=== PATIENT | female | born 1995 | race Caucasian/White ===

== ENCOUNTER 2021-04-02 14:49 | Inpatient (IN) | payer BC, SELFPAY ==
--- NOTE | 2021-04-02 | ECG_ITS ---
Test Reason : QTC PROLONGATION Blood Pressure : / mmHG Vent. Rate : 094 BPM Atrial Rate : 094 BPM P-R Int : 140 ms QRS Dur : 088 ms QT Int : 366 ms P-R-T Axes : 065 075 000 degrees QTc Int : 457 ms Normal sinus rhythm Normal ECG No previous ECGs available Referred By: Almaz Hammer Electronically Signed By:FABIANA HUITRON MD
[2021-04-02 15:14] VITALS: BMI 24.8
[2021-04-02 16:42] VITALS: BP 107/74; PULSE 95; RESP 16; TEMP 36.3; O2SAT 95
--- NOTE | 2021-04-02 18:00 | PC.ADMIT ---
Patient is a 25yr old korean speaking white female who present to [facility] from [facility]. Patient has being struggling with intrusive OCD and frequent SI, endorsing killing herself or self harming. Patient has diagnosis OCD and unspecified Anxiety Disorder. Patient is COVID (-). Patient signed CV. Patient is on 15mins safety checks. Patient reports occasional marijuana use. Patient arrived ton the unit around 1520, present very anxious and tearful. Denies SI/SH/ AH/VH, or pain. Patient reports she feel safe on the unit and will seek for staff support as needed. Patient appears helpless and hopeless stating I fear I'll never get better, I tried so had not to come to the hospital1 . Patient requested to take a shower as a coping skill, which seems to help a little bit and utilized staff support. Patient visible on the unit pacing. Patient tearful but cooperative with admission assessment and paper work.
[2021-04-02] MEDS: clomiPRAMINE HCl 25 MG CAPSULE PO (20:33)
[2021-04-02] MEDS: Mirtazapine 30 MG TABLET PO (20:33)
[2021-04-02] MEDS: hydrOXYzine HCL 25 MG TABLET PO (20:37)
[2021-04-02] MEDS: traZODone HCL 25 MG HALFTAB PO (21:40)
--- NOTE | 2021-04-02 22:11 | P.HPHOSP_ITS ---
History of Present Illness Date of Service: 04/02/21 Chief Complaint: admission H&P 25-year-old female with past medical history of depression is admitted to the [facility] unit for suicidal ideation. We are asked to see her for admission H&P. Patient her reports a history of Crohn's, currently in remission. She denies having any abdominal pain, nausea or vomiting, no diarrhea or constipation. No urinary symptoms. She does not have any acute issues except her depression. Vitals reviewed stable, review systems otherwise negative Review of Systems Review of Systems: Yes all other systems are reviewed and are negative [facility] Medical History (Updated 04/03/21 @ 06:33 by Leisa Shipman MD) Crohn's disease Depression Suicidal ideation Social History Household Members: Family Housing: House Do you presently have visiting nurse or other home services: No Patient Tobacco Use Status: Never used Tobacco Smoked in Last 30 Days: No e-Cigarette/Vaping Use: Never Used Patient Interested in Nicotine Replacement: No Patient Given Instructions on How to Stop Smoking: No Second Hand Smoke Exposure: No Use of substances other than those prescribed or required for medical reasons: No Substance Use Type: Marijuana Substance Use Frequency: Occasionally Last Used Substance: Weeks (ago) Currently Displaying Signs/Symptoms of Drug Intoxication Withdrawal: No Any prior treatment program specific to substance use: Yes ( late 08/2019 ) Have you been hit, kicked, punched, or otherwise hurt by someone within the past year? If so, by whom?: No Do you feel safe in your current relationship?: Yes Is there a partner from a previous relationship who is making you feel unsafe now?: No Are you made to feel afraid or neglected: No Spiritual Healthcare Practices: n/a Caodaism Healthcare Practices: i'm druze Cultural Healthcare Practices: n/a Advance Directives: No Advance Directives Information Provided: No Advance Directives on File: No Do you have thoughts of harming others: None Do you have a plan to hurt others: No Plan Recently lost weight without trying: No Eating poorly because of decreased appetite: No Nutrition Risks: No Nutritional Risk Patient : No : No Poor oral hygiene: No Meds Allergies Allergy/AdvReac Type Severity Reaction Status Date / Time No Known Allergies Allergy Verified 04/02/21 15:23 Active Medications: Current Medications Generic Name Dose Route Start Last Admin Trade Name Freq PRN Reason Stop Dose Admin Acetaminophen 650 mg 04/02/21 19:31 Acetaminophen 325 Mg Tablet PO Q6H PRN Headache/Pain Mild Scale (1-3) Al Hydroxide/Mg Hydroxide 30 ml 04/02/21 19:31 Magnesium Hydrox/Alum Hydrox 30 Ml Oral.Susp PO Q6H PRN Heartburn/Nausea Clomipramine HCl 25 mg 04/02/21 21:00 04/02/21 20:33 Clomipramine Hcl 25 Mg Capsule PO 25 mg BEDTIME CONTR[facility] Administration Escitalopram Oxalate 30 mg 04/03/21 09:00 Escitalopram Oxalate 10 Mg Tablet PO DAILY [facility] Hydroxyzine HCl 25 mg 04/02/21 19:31 04/02/21 20:37 Hydroxyzine Hcl 25 Mg Tablet PO 25 mg BEDTIME PRN Administration Anxiety Hydroxyzine HCl 25 mg 04/02/21 19:37 Hydroxyzine Hcl 25 Mg Tablet PO DAILY PRN Anxiety Ketoconazole 1 appl 04/04/21 21:00 Ketoconazole 2 % Shampoo 120 Ml Btl TOPICAL MoTh@2100 [facility] Protocol Magnesium Hydroxide 30 ml 04/02/21 19:31 Milk Of Magnesia 30 Ml Oral.Susp PO DAILY PRN Constipation Mirtazapine 30 mg 04/02/21 21:00 04/02/21 20:33 Mirtazapine 30 Mg Tablet PO 30 mg BEDTIME [facility] Administration Non-Formulary Medication 0.01 % 04/02/21 21:00 Fluocinolone Oil EAR-BOTH BID [facility] Non-Formulary Medication 1 tab 04/03/21 09:00 Junelle Fe PO DAILY [facility] Trazodone HCl 25 mg 04/02/21 19:31 04/02/21 21:40 Trazodone Hcl 25 Mg Halftab PO 25 mg BEDTIME PRN Administration Insomnia Physical Exam Vital Signs and Narrative: Vital Signs: Last Vital Signs Temp 97.4 F 04/02/21 16:42 Pulse 95 04/02/21 16:42 Resp 16 04/02/21 16:42 BP 107/74 04/02/21 16:42 Pulse Ox 95 04/02/21 16:42 Body Mass Index 24.8 Const: General: cooperative and no acute distress Orientation/consciousness: patient oriented x3 Eyes: General: appearance normal, both eyes and all related structures Pupils: Equal, round and reactive pupils present Resp: Effort & Inspection: normal respiratory effort and able to speak in complete sentences Cardio: Rate: regular rate Rhythm: regular rhythm GI: Palpation (GI): Soft to palpation Auscultation: normal bowel sounds Skin: General skin exam: no rashes or lesions noted Neuro: General: patient oriented x3 Cranial nerves: Yes Equal, round and reactive pupils present Cognition (Neuro): normal cognition Extrem: General: Yes normal to inspection and Yes no pedal edema Assessment and Plan (1) Depression: Status: Inactive (2) Suicidal ideation: Status: Inactive this is a 25-year-old female with past medical history of Crohn's as well as depression who is admitted to [facility] for management suicidal ideation. # Crohn's disease - no flare - monitor for symptoms if occur # depression and suicidal ideation - management by psychiatrist/ U staff DVT prophylaxis: Early ambulation Quality Stroke Does the patient have a stroke diagnosis?: No VTE Prior VTE?: No VTE Risk Level:: Medical - low VTE Device Contraindication: Treatment Not Indicated VTE Drug Contraindication: Treatment Not Indicated
[2021-04-03] MEDS: hydrOXYzine HCL 25 MG TABLET PO (03:38)
[2021-04-03 06:00] VITALS: BP 115/78; PULSE 103; RESP 16; TEMP 36.2; O2SAT 93
[2021-04-03 07:08] LABS: MANUAL DIFF FLAG NO
[2021-04-03 07:13] LABS: Basophils Percent Auto 0.5 % (0-2); Eosinophils Absolute Auto 0.2 X10*3/uL (0.0-0.4); Eosinophils Percent Auto 2.7 % (0-4); Hematocrit 43.4 % (37-47); Hemoglobin 14.5 g/dl (12.0-16.0); Imm Gran Abs Auto 0.02 X10*3/uL (0.00-0.03); Imm Gran Pct Auto 0.2 % (0.0-0.4); Lymphocytes Absolute Auto 4.2 X10*3/uL (1.2-4.9); Lymphocytes Percent Auto 47.7 % (20-40); Mean Corpuscular HGB Conc 33.4 g/dl (31.0-35.0); Mean Corpuscular Hemoglobin 30.5 pg (27.0-33.0); Mean Corpuscular Volume 91.2 fL (80-98); Mean Platelet Volume 11.5 fL (9.4-12.3); Monocytes Absolute Auto 0.7 X10*3/uL (0.1-1.2); Neutrophils Absolute Auto 3.6 X10*3/uL (2.0-8.3); Neutrophils Percent Auto 40.9 % (45-73); Platelet Count 205 X10*3/uL (160-400); Red Blood Count 4.76 X10*6/uL (4.20-5.50); Red Cell Distribution Width 12.5 % (11.0-16.0); White Blood Count 8.8 X10*3/uL (4.8-10.8)
[2021-04-03 07:58] LABS: Alanine Aminotransferase 13 U/L (0-31); Albumin Level 4.1 g/dL (3.5-5.0); Alkaline Phosphatase 60 U/L (39-117); Anion Gap 10 (12-20); Aspartate Amino Transferase 14 U/L (5-31); Bilirubin Direct < 0.2 mg/dL (0.0-0.5); Blood Urea Nitrogen 13 mg/dL (9-16); Calcium 9.3 mg/dL (8.4-10.2); Carbon Dioxide 28 mmol/L (22-29); Chloride 105 mmol/L (96-108); Estimated Glomerular Filt Rate > 60; Glucose Fasting 108 mg/dL (60-99); Potassium 4.2 mmol/L (3.3-5.1); Sodium 139 mmol/L (135-145); Total Protein 7.3 g/dL (6.5-8.0)
[2021-04-03 08:03] LABS: Thyroid Stimulating Hormone 2.95 uIU/mL (0.32-4.0)
--- NOTE | 2021-04-03 08:36 | HE.PHANOTE ---
Contacted overnight nursing staff who spoke with patient about patient's medications. Patient reports they can have someone bring in Junelle and Fluocinolone ear drops. Stephanie Morales, NormanD
[2021-04-03] MEDS: LORazepam 1 MG TABLET PO (09:09)
--- NOTE | 2021-04-03 09:47 | P.HPPS_ITS ---
HPI Chief Complaint: OCD Anxiety Disorder Sources of Information: patient interviewed, chart reviewed and crisis/core team assessment reviewed HPI Subjective Notes: Ross Warning and Conditional Voluntary Narrative: Patient is a 25-year-old female, college graduate with history of OCD and alcohol abuse (in sustained remission) who presents for worsening OCD symptoms of intrusive thoughts about suicide and having now become suicidal. Patient reports that this past January and February her OCD got worse. her obsessive thoughts used to be primarily focused on sleep and switched to obsessively intrusive thoughts about whether she still liked her boyfriend, still loved her boyfriend, was attracted to him. . . Asking herself this more than once a minute and all day long. She said she barely made it through work which is now finished for the summer. Patient reports she started having some SI and her outpatient provider started her on clomipramine however over the this subsequent weaker to her obsessive intrusive thoughts started thinking about suicide. Patient had insight, understood this was OCD directed and reports they were just intrusive thoughts and that she had no desire or intent to harm herself; however she could not stop thinking about how she would do it, if she should do it which became overwhelming and started to bleed to hopeless d epressive feelings that she would ever get over her OCD. She reports she mentioned the became suicidal and was for the 1st time in her life entertaining the idea of hanging herself to . The patient has very good support with her boyfriend and parents and she made no attempt. When at her gynecology appointment she expressed SI, crisis was called and patient was admitted. Patient denies trauma history; she denies current desire to hurt herself and wants treatment. Patient denies any drug or alcohol abuse and has been sober from alcohol since August 2019. patient denies any AVH. patient denies compulsive behaviors. past psychiatric history/ OCD progression: patient was treated for anxiety as a teenager and was on Luvox In college she stop Luvox but with recurrent anxiety was started on Lexapro and eventually titrated to 30 mg. patient was also using alcohol to mitigate symptoms, though got sober in 2018. 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 OCD symptoms worsened and she was [facility]. There she was continued on Lexapro and started on mirtazapine. At this time, her OCD symptoms were about intrusive thoughts regarding sleep. After discharge she reports doing pretty well over the next spring and Summer and was involved with both CBT therapy and DBT. in the fall of 2019 patient's anxiety increased and her Lexapro was increased to 40 mg; right around that same time patient got COVID and ended up very isolated from people, which increased anxiety and resulted in panic attacks. She had some concern that the increased anxiety was due to the Lexapro increase so it was lowered back to 30 mg however anxiety did continue. After she recovered from COVID, she was able to work again and being around people, being less isolated her anxiety decreased. She reports from October 2020 until January 2021 she was overall doing pretty good and says she was functional . . . Working, doing activities, getting together with friends. Towards the end of January and starting in February is when her OCD switch to obsessive thoughts about her relationship. See above for continued recent history. 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 Boyfriend who is supportive since June 2020 About to move into a new house with her boyfriend Substance History: history of alcohol abuse, sober since 2018 Trauma History: denies Diagnostics Vital Signs (24Hr): Vital Signs - 24 hr 04/02/21 16:42 04/03/21 06:00 Temperature 97.4 F 97.1 F Pulse Rate 95 103 H Respiratory Rate 16 16 Blood Pressure 107/74 115/78 Pulse Oximetry 95 93 Body Mass Index 24.8 Labs Results: 04/03/21 07:02 04/03/21 07:02 Labs: Laboratory Results - last 48 hr 04/03/21 04/03/21 07:02 07:02 WBC 8.8 RBC 4.76 Hgb 14.5 Hct 43.4 MCV 91.2 MCH 30.5 MCHC 33.4 RDW 12.5 Plt Count 205 MPV 11.5 Immature Gran % (Auto) 0.2 Neut % (Auto) 40.9 L Lymph % (Auto) 47.7 H [place] % (Auto) 8.0 Eos % (Auto) 2.7 Baso % (Auto) 0.5 Lymph # (Auto) 4.2 [place] # (Auto) 0.7 Eos # (Auto) 0.2 Baso # (Auto) 0.0 Abs Immat Gran (auto) 0.02 Absolute Neuts (auto) 3.6 Absolute Nucleated RBC 0.000 Nucleated RBC % (auto) 0.0 Sodium 139 Potassium 4.2 Chloride 105 Carbon Dioxide 28 Anion Gap 10 L BUN 13 Creatinine 0.91 Estim Creat Clear Calc 85.0 Estimated GFR > 60 Fasting Glucose 108 H Calcium 9.3 Total Bilirubin < 0.2 Direct Bilirubin < 0.2 AST 14 ALT 13 Alkaline Phosphatase 60 Total Protein 7.3 Albumin 4.1 TSH 2.95 Free T4 1.00 Meds/Allergies Meds Home Medications Acetaminophen (Acetaminophen 325 Mg Tablet) 650 mg PO Q6H PRN PRN Reason: Headache/Pain Mild Scale (1-3) Al Hydroxide/Mg Hydroxide (Magnesium Hydrox/Alum Hydrox 30 Ml Oral.Susp) 30 ml PO Q6H PRN PRN Reason: Heartburn/Nausea Clomipramine HCl (Clomipramine Hcl 25 Mg Capsule) 50 mg PO BEDTIME [facility] Escitalopram Oxalate (Escitalopram Oxalate 10 Mg Tablet) 30 mg PO DAILY [facility] Last Admin: 04/03/21 10:57 Dose: 30 mg Documented by: Gabapentin (Gabapentin 300 Mg Capsule) 300 mg PO TID PRN PRN Reason: anxiety Ketoconazole (Ketoconazole 2 % Shampoo 120 Ml Btl) 1 appl TOPICAL MoTh@2100 [facility]; Protocol Magnesium Hydroxide (Milk Of Magnesia 30 Ml Oral.Susp) 30 ml PO DAILY PRN PRN Reason: Constipation Mirtazapine (Mirtazapine 7.5 Mg Tablet) 7.5 mg PO BEDTIME [facility] Non-Formulary Medication (Fluocinolone Oil) 0.01 % EAR-BOTH BID [facility] Non-Formulary Medication () 1 tab PO DAILY [facility] Trazodone HCl (Trazodone Hcl 50 Mg Tablet) 50 mg PO BEDTIME [facility] Trazodone HCl (Trazodone Hcl 50 Mg Tablet) 50 mg PO BEDTIME PRN PRN Reason: continued insomnia Allergies Allergies Allergy/AdvReac Type Severity Reaction Status Date / Time No Known Allergies Allergy Verified 04/02/21 15:23 Mental Status Exam Mental Status Exam Narrative: Pt is alert and oriented; behavior is cooperative, friendly and calm; patient intermittently tearful; dressed in casual attire with adequate hygiene; mood is described as anxious and affect congruent; eye contact appropriate; Speech is normal rate, volume and prosody and not pressured; no psychomotor agitation/retardation present; thought process is organized, linear, logical and goal directed. Thought content is on treatment and otherwise pertinent to relevant topics and without any delusional content, paranoid ideations or grandiosity; denies any SI/HI. There is no evidence of perceptual disturbance. Patients insight and judgment appear intact. Assessment & Plan Assessment & Plan (1) OCD (obsessive compulsive disorder): Status: Chronic Qualifiers: Qualified Code(s): F42.9 - Obsessive-compulsive disorder, unspecified Code(s): F42.9 - Obsessive-compulsive disorder, unspecified Assessment and Plan: IMPRESSION: Patient is a 25-year-old female, college graduate with history of OCD and alcohol abuse (in sustained remission) who presents for worsening OCD symptoms of intrusive thoughts about suicide and having now become suicidal. Patient has suicidal thoughts remain intrusive however she denies any desire to harm herself and wants treatment Patient has OCD is chronic and goes through periods of exacerbation; she seems to have done best when also engaged in CBT therapy which she would like to get back into. Lexapro seems to have partially worked to varying degrees; clomipramine was just started. Is unlikely that Lexapro dose, when raised to 40 mg caused increased anxiety is this coincided with patient being isolated due to COVID; also SI started before clomipramine was added as a medication; that said she is on 3 agents that increase serotonin and could have a touch of serotonin syndrome. thoroughly discussed treatment options including increasing the doses of meds she is on or trying new meds. Patient would like to see if clomipramine could be effective at higher doses; she agrees to lower mirtazapine to 7.5 mg while titrating clomipramine; will leave Lexapro as is. Plan: Patient on CV Q 15 minutes checks Will increase clomipramine to 50 mg; it was started about 2 weeks ago Will lower mirtazapine to 7.5 mg; not sure if affective and want to lower risk of serotonin syndrome Will keep Lexapro at 30 mg for now Will add gabapentin 300 mg t.i.d. p.r.n. for anxiety as there is a desire to find alternative to benzos given patient's ETOH abuse history DC hydroxyzine which patient says is not effective Increase trazodone to 50 mg with a repeat for insomnia Labs at [place]: urine test negative; UDS negative Reason for continued inpatient stay Substantial Risk for: rapid decompensation
[2021-04-03] MEDS: Escitalopram Oxalate 10 MG TABLET 30 MG PO (10:57)
[2021-04-03 14:46] LABS: Urine Pregnancy NEGATIVE (NEGATIVE)
[2021-04-03 14:47] LABS: UPreg QC Valid YES
[2021-04-03 17:42] LABS: Bilirubin Total 0.3 mg/dL (0.0-1.0)
[2021-04-03 18:00] VITALS: BP 126/62; PULSE 106
[2021-04-03] MEDS: Mirtazapine 7.5 MG TABLET PO (20:55)
[2021-04-03] MEDS: clomiPRAMINE HCl 25 MG CAPSULE 50 MG PO (20:56)
[2021-04-03] MEDS: traZODone HCL 50 MG TABLET PO (21:32)
[2021-04-03] MEDS: Gabapentin 300 MG CAPSULE PO (21:33)
[2021-04-04] MEDS: Escitalopram Oxalate 10 MG TABLET 30 MG PO (08:01)
--- NOTE | 2021-04-04 09:44 | HO.PSYCHPN ---
Subjective Subjective Date of Service: 04/04/21 Reason For Visit: OCD Anxiety Disorder Interim History: met with patient and her parents pt reports SI has thus far resolved; currently her obsessive thinking is focused on obsessive thinking and will she ever get relief. Pt did get a good night sleep last night. Pt denies any side-effects from increased Clomipramine and agrees to further titration. [employer] provided pharmaco-education to parents and patient who agree with plan to further titrate Clomipramine. Medication Compliance: Yes Side effects from medications: No Attending Groups: Yes Mental Status Exam Mental Status Exam Narrative: Pt is alert and oriented; behavior is cooperative, friendly and calm; dressed in casual attire with adequate hygiene; mood is described as a little hopeless and affect congruent; eye contact appropriate; Speech is normal rate, volume and prosody and not pressured; no psychomotor agitation/retardation present; thought process is organized, linear, logical and goal directed. Thought content is on treatment and otherwise pertinent to relevant topics and without any delusional content, paranoid ideations or grandiosity; denies any SI/HI. There is no evidence of perceptual disturbance. Patients insight and judgment appear intact. Diagnostics Vital Signs (24Hr): Vital Signs - 24 hr 04/03/21 18:00 Pulse Rate 106 H Blood Pressure 126/62 Body Mass Index 24.8 Labs Results: 04/03/21 07:02 04/03/21 07:02 Labs: Laboratory Results - last 48 hr 04/03/21 04/03/21 04/03/21 07:02 07:02 14:27 WBC 8.8 RBC 4.76 Hgb 14.5 Hct 43.4 MCV 91.2 MCH 30.5 MCHC 33.4 RDW 12.5 Plt Count 205 MPV 11.5 Immature Gran % (Auto) 0.2 Neut % (Auto) 40.9 L Lymph % (Auto) 47.7 H [place] % (Auto) 8.0 Eos % (Auto) 2.7 Baso % (Auto) 0.5 Lymph # (Auto) 4.2 [place] # (Auto) 0.7 Eos # (Auto) 0.2 Baso # (Auto) 0.0 Abs Immat Gran (auto) 0.02 Absolute Neuts (auto) 3.6 Absolute Nucleated RBC 0.000 Nucleated RBC % (auto) 0.0 Sodium 139 Potassium 4.2 Chloride 105 Carbon Dioxide 28 Anion Gap 10 L BUN 13 Creatinine 0.91 Estim Creat Clear Calc 85.0 Estimated GFR > 60 Fasting Glucose 108 H Calcium 9.3 Total Bilirubin 0.3 Direct Bilirubin < 0.2 AST 14 ALT 13 Alkaline Phosphatase 60 Total Protein 7.3 Albumin 4.1 TSH 2.95 Free T4 1.00 Urine Test NEGATIVE Medications Medications Current Medications Generic Name Dose Route Start Last Admin Trade Name Freq PRN Reason Stop Dose Admin Acetaminophen 650 mg 04/02/21 19:31 Acetaminophen 325 Mg Tablet PO Q6H PRN Headache/Pain Mild Scale (1-3) Al Hydroxide/Mg Hydroxide 30 ml 04/02/21 19:31 Magnesium Hydrox/Alum Hydrox 30 Ml Oral.Susp PO Q6H PRN Heartburn/Nausea Clomipramine HCl 50 mg 04/03/21 21:00 04/03/21 20:56 Clomipramine Hcl 25 Mg Capsule PO 50 mg BEDTIME [facility] Administration Escitalopram Oxalate 30 mg 04/03/21 09:00 04/04/21 08:01 Escitalopram Oxalate 10 Mg Tablet PO 30 mg DAILY [facility] Administration Gabapentin 300 mg 04/03/21 15:18 04/03/21 21:33 Gabapentin 300 Mg Capsule PO 300 mg TID PRN Administration anxiety Ketoconazole 1 appl 04/04/21 21:00 Ketoconazole 2 % Shampoo 120 Ml Btl TOPICAL MoTh@2100 [facility] Protocol Magnesium Hydroxide 30 ml 04/02/21 19:31 Milk Of Magnesia 30 Ml Oral.Susp PO DAILY PRN Constipation Mirtazapine 7.5 mg 04/03/21 21:00 04/03/21 20:55 Mirtazapine 7.5 Mg Tablet PO 7.5 mg BEDTIME [facility] Administration Non-Formulary Medication 0.01 % 04/02/21 21:00 Fluocinolone Oil EAR-BOTH BID [facility] Non-Formulary Medication 1 tab 04/03/21 09:00 Junelle Fe PO DAILY [facility] Trazodone HCl 50 mg 04/03/21 21:00 04/03/21 21:32 Trazodone Hcl 50 Mg Tablet PO 50 mg BEDTIME [facility] Administration Trazodone HCl 50 mg 04/03/21 15:21 Trazodone Hcl 50 Mg Tablet PO BEDTIME PRN continued insomnia Allergies Allergies Allergy/AdvReac Type Severity Reaction Status Date / Time No Known Allergies Allergy Verified 04/02/21 15:23 Assessment & Plan Assessment & Plan (1) OCD (obsessive compulsive disorder): Qualifiers: Qualified Code(s): F42.9 - Obsessive-compulsive disorder, unspecified Status: Chronic Code(s): F42.9 - Obsessive-compulsive disorder, unspecified Assessment and Plan: IMPRESSION: Patient is a 25-year-old female, college graduate with history of OCD and alcohol abuse (in sustained remission) who presents for worsening OCD symptoms of intrusive thoughts about suicide and having now become suicidal. Patient has suicidal thoughts remain intrusive however she denies any desire to harm herself and wants treatment Patient has OCD is chronic and goes through periods of exacerbation; she seems to have done best when also engaged in CBT therapy which she would like to get back into. Lexapro seems to have partially worked to varying degrees; clomipramine was just started. Is unlikely that Lexapro dose, when raised to 40 mg caused increased anxiety is this coincided with patient being isolated due to COVID; also SI started before clomipramine was added as a medication; that said she is on 3 agents that increase serotonin and could have a touch of serotonin syndrome. thoroughly discussed treatment options including increasing the doses of meds she is on or trying new meds. Patient would like to see if clomipramine could be effective at higher doses; she agrees to lower mirtazapine to 7.5 mg while titrating clomipramine; will leave Lexapro as is. Plan: Patient on CV Q 15 minutes checks Increase clomipramine to 75 mg; (Clomipramine was started about 2 weeks ago) Lowered mirtazapine to 7.5 mg and will leave here for now; may soon DC; not sure if affective and want to lower risk of serotonin syndrome Will keep Lexapro at 30 mg for now Will add gabapentin 300 mg t.i.d. p.r.n. for anxiety as there is a desire to find alternative to benzos given patient's ETOH abuse history DC hydroxyzine which patient says is not effective Increase trazodone to 50 mg with a repeat for insomnia Labs at [place]: urine test negative; UDS negative Greater than 50% of the session was spent on counseling and/or coordination of care Reason for contiued inpatient stay Substantial Risk for: rapid decompensation
[2021-04-04 11:15] VITALS: BMI 24.6
[2021-04-04 19:51] VITALS: BP 125/74; PULSE 99; RESP 16
[2021-04-04] MEDS: Mirtazapine 7.5 MG TABLET PO (21:02)
[2021-04-04] MEDS: clomiPRAMINE HCl 25 MG CAPSULE 75 MG PO (21:02)
[2021-04-04] MEDS: traZODone HCL 50 MG TABLET PO (22:29)
[2021-04-05 08:29] VITALS: BP 109/68; PULSE 68; RESP 18; TEMP 36.2; O2SAT 98
[2021-04-05] MEDS: Escitalopram Oxalate 10 MG TABLET 30 MG PO (08:51)
--- NOTE | 2021-04-05 12:01 | P.PNPSI_ITS ---
Subjective Subjective Date of Service: 04/05/21 Reason For Visit: OCD Anxiety Disorder Interim History: patient tearful today, saying that although she had a good day yesterday and slept well last night, she woke up very anxious and worried and perseverating on the fact that she may never get better. She reports some momentary thoughts of SI and she is worried that obsessive thoughts about suicide will return. She denies any intent, plan or desire toward self harm. She denies any medication side effects and agrees to continue to titrate clomipramine to 100 mg. she continues to use her coping skills to deal with upsetting thoughts and she and technical proposal writer did a short CBT type exercise which patient found helpful. Later patient's parents came and met with technical proposal writer and continue to discuss medication management. All agreed that it was corral for patient to remain on unit a little longer to help resolve symptoms. Medication Compliance: Yes Side effects from medications: No Attending Groups: Yes Mental Status Exam Mental Status Exam Narrative: Pt is alert and oriented; behavior is cooperative, friendly, tearful at times; dressed in casual attire with adequate hygiene; mood is described as anxious and affect congruent; eye contact appropriate; Speech is normal rate, volume and prosody and not pressured; no psychomotor agitation/retardation present; thought process is organized, linear, logical and goal directed. Thought content is on treatment and otherwise pertinent to relevant topics and without any delusional content, paranoid ideations or grandiosity; denies any active SI/HI. There is no evidence of perceptual disturbance. Patients insight and judgment appear intact. Diagnostics Vital Signs (24Hr): Vital Signs - 24 hr 04/04/21 19:51 04/05/21 08:29 Temperature 97.1 F Pulse Rate 99 68 Respiratory Rate 16 18 Blood Pressure 125/74 109/68 Pulse Oximetry 98 Body Mass Index 24.6 Labs Results: 04/03/21 07:02 04/03/21 07:02 Labs: Laboratory Results - last 48 hr 04/03/21 04/03/21 07:02 14:27 Total Bilirubin 0.3 Urine Test NEGATIVE Medications Medications Current Medications Generic Name Dose Route Start Last Admin Trade Name Freq PRN Reason Stop Dose Admin Acetaminophen 650 mg 04/02/21 19:31 Acetaminophen 325 Mg Tablet PO Q6H PRN Headache/Pain Mild Scale (1-3) Al Hydroxide/Mg Hydroxide 30 ml 04/02/21 19:31 Magnesium Hydrox/Alum Hydrox 30 Ml Oral.Susp PO Q6H PRN Heartburn/Nausea Clomipramine HCl 75 mg 04/04/21 21:00 04/04/21 21:02 Clomipramine Hcl 25 Mg Capsule PO 75 mg BEDTIME CONTRERAS Administration Escitalopram Oxalate 30 mg 04/03/21 09:00 04/05/21 08:51 Escitalopram Oxalate 10 Mg Tablet PO 30 mg DAILY CONTRERAS Administration Gabapentin 300 mg 04/03/21 15:18 04/03/21 21:33 Gabapentin 300 Mg Capsule PO 300 mg TID PRN Administration anxiety Ketoconazole 1 appl 04/04/21 21:00 04/04/21 21:02 Ketoconazole 2 % Shampoo 120 Ml Btl TOPICAL Not Given MoTh@2100 [facility] Protocol Magnesium Hydroxide 30 ml 04/02/21 19:31 Milk Of Magnesia 30 Ml Oral.Susp PO DAILY PRN Constipation Mirtazapine 7.5 mg 04/03/21 21:00 04/04/21 21:02 Mirtazapine 7.5 Mg Tablet PO 7.5 mg BEDTIME CONTRERAS Administration Non-Formulary Medication 0.01 % 04/02/21 21:00 Fluocinolone Oil EAR-BOTH BID CONTRERAS Non-Formulary Medication 1 tab 04/03/21 09:00 Junelle Fe PO DAILY CONTRERAS Trazodone HCl 50 mg 04/03/21 21:00 04/04/21 22:29 Trazodone Hcl 50 Mg Tablet PO 50 mg BEDTIME CONTRERAS Administration Trazodone HCl 50 mg 04/03/21 15:21 Trazodone Hcl 50 Mg Tablet PO BEDTIME PRN continued insomnia Allergies Allergies Allergy/AdvReac Type Severity Reaction Status Date / Time No Known Allergies Allergy Verified 04/02/21 15:23 Assessment & Plan Assessment & Plan (1) OCD (obsessive compulsive disorder): Qualifiers: Qualified Code(s): F42.9 - Obsessive-compulsive disorder, unspecified Status: Chronic Code(s): F42.9 - Obsessive-compulsive disorder, unspecified Assessment and Plan: IMPRESSION: Patient is a 25-year-old female, college graduate with history of OCD and alcohol abuse (in sustained remission) who presents for worsening OCD symptoms of intrusive thoughts about suicide and having now become suicidal. Patient has suicidal thoughts remain intrusive however she denies any desire to harm herself and wants treatment Patient has OCD is chronic and goes through periods of exacerbation; she seems to have done best when also engaged in CBT therapy which she would like to get back into. Lexapro seems to have partially worked to varying degrees; clomipramine was just started. Is unlikely that Lexapro dose, when raised to 40 mg caused increased anxiety is this coincided with patient being isolated due to COVID; also SI started before clomipramine was added as a medication; that said she is on 3 agents that increase serotonin and could have a touch of serotonin syndrome. thoroughly discussed treatment options including increasing the doses of meds she is on or trying new meds. Patient would like to see if clomipramine could be effective at higher doses; she agrees to lower mirtazapine to 7.5 mg while titrating clomipramine; will leave Lexapro as is. Patient remains depressed and anxious, intermittently tearful and plagued with intrusive obsessive thoughts. Patient needs to remain on unit for continued medication management as she is being titrated on clomipramine. Plan: Patient on CV Q 15 minutes checks EKG ordered for 04/09 to follow Qtc Titrating clomipramine to 100mg (Clomipramine was started about 2 weeks ago) Lowered mirtazapine to 7.5 mg; will dc (not sure effective) will keep Lexapro at 30 mg for now continue gabapentin 300 mg t.i.d. p.r.n. for anxiety as there is a desire to find alternative to benzos given patient's ETOH abuse history DC hydroxyzine which patient says is not effective Increase trazodone to 50 mg with a repeat for insomnia Labs at [place]: urine test negative; UDS negative Greater than 50% of the session was spent on counseling and/or coordination of care Reason for contiued inpatient stay Substantial Risk for: rapid decompensation
[2021-04-05 20:29] VITALS: BP 125/91; PULSE 114
[2021-04-05] MEDS: Mirtazapine 7.5 MG TABLET PO (21:14)
[2021-04-05] MEDS: clomiPRAMINE HCl 25 MG CAPSULE 75 MG PO (21:14)
[2021-04-05] MEDS: traZODone HCL 50 MG TABLET PO (22:19)
--- NOTE | 2021-04-06 | ECG_ITS ---
Test Reason : irregular heart beat/tachycardia Blood Pressure : / mmHG Vent. Rate : 099 BPM Atrial Rate : 099 BPM P-R Int : 134 ms QRS Dur : 084 ms QT Int : 358 ms P-R-T Axes : 055 072 -09 degrees QTc Int : 459 ms Normal sinus rhythm Abnormal QRS-T angle, consider primary T wave abnormality Abnormal ECG No previous ECGs available Referred By: Almaz Hammer Electronically Signed By:FABIANA HUITRON MD
[2021-04-06] MEDS: traZODone HCL 50 MG TABLET PO (00:36)
[2021-04-06 06:46] VITALS: BP 104/55; PULSE 106; RESP 18; O2SAT 98
[2021-04-06] MEDS: Gabapentin 300 MG CAPSULE PO ×2 (08:03→21:50)
[2021-04-06] MEDS: Escitalopram Oxalate 10 MG TABLET 30 MG PO (08:03)
[2021-04-06 08:31] VITALS: BP 123/69; PULSE 78; RESP 20; O2SAT 100
[2021-04-06 11:05] LABS: MANUAL DIFF FLAG NO
[2021-04-06 11:25] LABS: Basophils Percent Auto 0.3 % (0-2); Eosinophils Percent Auto 0.5 % (0-4); Hematocrit 44.2 % (37-47); Hemoglobin 15.1 g/dl (12.0-16.0); Imm Gran Abs Auto 0.02 X10*3/uL (0.00-0.03); Imm Gran Pct Auto 0.3 % (0.0-0.4); Lymphocytes Absolute Auto 1.6 X10*3/uL (1.2-4.9); Lymphocytes Percent Auto 24.8 % (20-40); Mean Corpuscular HGB Conc 34.2 g/dl (31.0-35.0); Mean Corpuscular Hemoglobin 30.4 pg (27.0-33.0); Mean Corpuscular Volume 89.1 fL (80-98); Mean Platelet Volume 11.2 fL (9.4-12.3); Monocytes Absolute Auto 0.4 X10*3/uL (0.1-1.2); Neutrophils Absolute Auto 4.5 X10*3/uL (2.0-8.3); Neutrophils Percent Auto 68.1 % (45-73); Platelet Count 191 X10*3/uL (160-400); Red Blood Count 4.96 X10*6/uL (4.20-5.50); Red Cell Distribution Width 12.5 % (11.0-16.0); White Blood Count 6.6 X10*3/uL (4.8-10.8)
[2021-04-06 12:03] LABS: Alanine Aminotransferase 13 U/L (0-31); Albumin Level 4.2 g/dL (3.5-5.0); Alkaline Phosphatase 59 U/L (39-117); Anion Gap 16 (12-20); Aspartate Amino Transferase 16 U/L (5-31); Bilirubin Total 0.4 mg/dL (0.0-1.0); Blood Urea Nitrogen 11 mg/dL (9-16); Calcium 9.6 mg/dL (8.4-10.2); Carbon Dioxide 23 mmol/L (22-29); Chloride 103 mmol/L (96-108); Creatinine Clr Calc Pharmacy 71.6; Estimated Glomerular Filt Rate > 60; Glucose Random 152 mg/dL (60-115); Potassium 4.6 mmol/L (3.3-5.1); Sodium 137 mmol/L (135-145); Total Protein 7.9 g/dL (6.5-8.0)
--- NOTE | 2021-04-06 12:43 | HO.PSYCHPN ---
Subjective Subjective Date of Service: 04/06/21 Reason For Visit: OCD Anxiety Disorder Interim History: Pt very tearful; anxious; sedated; making suicidal statement; stating her body feels terrible; stating she does not understand what is going on with her. fearful she wont ever recover; says her body feels terrible but unable to describe; presents with muscle weakness, difficulty keeping eyes open, afraid to be alone. sobbing at times. Needing much reassurance. Initially disheveled but able to take shower and attend to hygiene. patient's parents came fro visit which pt found calming. Review of Systems Review of Systems Yes all other systems are reviewed and are negative Constitutional: Reports malaise, Reports poor appetite and Reports weakness Comments: reports rapid heart beat EKG abnormal- see below denies chest pain denies nausea Comments: no SOB Comments: denies Comments: denies sx Comments: no twitching, no rigidity, no tremor; presents with weakness, slow movement, closed eyelids, laying head on table Reports weakness Comments: no falls, denies numbness or tingling Mental Status Exam Mental Status Exam Narrative: Pt is presenting sedated, eye lids drooping, head on table; oriented to person, place, time, behavior is cooperative, friendly, very tearful at times; sobbing at times. dressed in casual attire and initially disheveled but later in am took shower and presented with more adequate hygiene; mood is described highly distressed, distraught, hopelss, and anxious. affect congruent; eye closed frequently; Speech is normal rate, volume and prosody and not pressured; psychomotor agitation present with sedation present; thought process is disorganized, ruminating abour never getting better and feeling like she needs to pull herself together Thought content is on treatment and otherwise pertinent to relevant topics and without any delusional content, paranoid ideations or grandiosity; expressing passive SI with strong hopelessness; no HI. There is no evidence of perceptual disturbance. Patients insight and judgment appear fair- poor. Diagnostics Vital Signs (24Hr): Vital Signs - 24 hr 04/05/21 20:29 04/06/21 06:46 04/06/21 08:31 Pulse Rate 114 H 106 H 78 Respiratory Rate 18 20 Blood Pressure 125/91 H 104/55 L 123/69 Pulse Oximetry 98 100 Body Mass Index 24.6 Labs Results: 04/06/21 10:54 04/06/21 10:54 Labs: Laboratory Results - last 48 hr 04/06/21 04/06/21 10:54 10:54 WBC 6.6 RBC 4.96 Hgb 15.1 Hct 44.2 MCV 89.1 MCH 30.4 MCHC 34.2 RDW 12.5 Plt Count 191 MPV 11.2 Immature Gran % (Auto) 0.3 Neut % (Auto) 68.1 Lymph % (Auto) 24.8 [place] % (Auto) 6.0 Eos % (Auto) 0.5 Baso % (Auto) 0.3 Lymph # (Auto) 1.6 [place] # (Auto) 0.4 Eos # (Auto) 0.0 Baso # (Auto) 0.0 Abs Immat Gran (auto) 0.02 Absolute Neuts (auto) 4.5 Absolute Nucleated RBC 0.000 Nucleated RBC % (auto) 0.0 Sodium 137 Potassium 4.6 Chloride 103 Carbon Dioxide 23 Anion Gap 16 BUN 11 Creatinine 1.08 Estim Creat Clear Calc 71.6 Estimated GFR > 60 Random Glucose 152 H Calcium 9.6 Total Bilirubin 0.4 AST 16 ALT 13 Alkaline Phosphatase 59 Total Protein 7.9 Albumin 4.2 Medications Medications Current Medications Generic Name Dose Route Start Last Admin Trade Name Freq PRN Reason Stop Dose Admin Acetaminophen 650 mg 04/02/21 19:31 Acetaminophen 325 Mg Tablet PO Q6H PRN Headache/Pain Mild Scale (1-3) Al Hydroxide/Mg Hydroxide 30 ml 04/02/21 19:31 Magnesium Hydrox/Alum Hydrox 30 Ml Oral.Susp PO Q6H PRN Heartburn/Nausea Clomipramine HCl 50 mg 04/06/21 21:00 Clomipramine Hcl 25 Mg Capsule PO BEDTIME PENDING SALE TO [facility] Escitalopram Oxalate 10 mg 04/07/21 09:00 Escitalopram Oxalate 10 Mg Tablet PO DAILY PENDING SALE TO [facility] Gabapentin 300 mg 04/03/21 15:18 04/06/21 08:03 Gabapentin 300 Mg Capsule PO 300 mg TID PRN Administration anxiety Ketoconazole 1 appl 04/04/21 21:00 04/04/21 21:02 Ketoconazole 2 % Shampoo 120 Ml Btl TOPICAL Not Given MoTh@2100 [facility] Protocol Magnesium Hydroxide 30 ml 04/02/21 19:31 Milk Of Magnesia 30 Ml Oral.Susp PO DAILY PRN Constipation Mirtazapine 3.75 mg 04/06/21 21:00 Mirtazapine 7.5 Mg Tablet PO 04/06/21 23:59 BEDTIME CONTRERAS Non-Formulary Medication 0.01 % 04/02/21 21:00 Fluocinolone Oil EAR-BOTH BID CONTRERAS Non-Formulary Medication 1 tab 04/03/21 09:00 Junelle Fe PO DAILY CONTRERAS Trazodone HCl 25 mg 04/06/21 21:00 Trazodone Hcl 25 Mg Halftab PO BEDTIME CONTRERAS Trazodone HCl 25 mg 04/06/21 10:06 Trazodone Hcl 25 Mg Halftab PO BEDTIME PRN continued insomnia Allergies Allergies Allergy/AdvReac Type Severity Reaction Status Date / Time No Known Allergies Allergy Verified 04/02/21 15:23 Assessment & Plan Assessment & Plan (1) OCD (obsessive compulsive disorder): Qualifiers: Qualified Code(s): F42.9 - Obsessive-compulsive disorder, unspecified Status: Chronic Code(s): F42.9 - Obsessive-compulsive disorder, unspecified Assessment and Plan: IMPRESSION: Patient is a 25-year-old female, college graduate with history of OCD and alcohol abuse (in sustained remission) who presents for worsening OCD symptoms of intrusive thoughts about suicide and having now become suicidal. Patient has suicidal thoughts remain intrusive however she denies any desire to harm herself and wants treatment Patient has OCD is chronic and goes through periods of exacerbation; she seems to have done best when also engaged in CBT therapy which she would like to get back into. Lexapro seems to have partially worked to varying degrees; clomipramine was just started. Is unlikely that Lexapro dose, when raised to 40 mg caused increased anxiety is this coincided with patient being isolated due to COVID; also SI started before clomipramine was added as a medication; that said she is on 3 agents that increase serotonin and could have a touch of serotonin syndrome. thoroughly discussed treatment options including increasing the doses of meds she is on or trying new meds. Patient would like to see if clomipramine could be effective at higher doses; she agrees to lower mirtazapine to 7.5 mg while titrating clomipramine; will leave Lexapro as is. 04/06/21 Patient presenting much more distressed this am with agitation and sedation. Patient remains depressed and anxious, intermittently tearful, sobbing and plagued with intrusive obsessive thoughts and hopelessness. Unclear if pt having reaction to clomipramine, gabapentin , or medication combination. R/O serotonin syndrome vs adverse reaction to medications. Chem profile and CBC ordered. EKG ordered. Changed to 5 min checks due to presentation and increased verbalization of SI, increased distress Plan: Patient on CV Q 5 minutes checks EKG ordered for today to r/o reaction to meds CMP and CBC REDUCE clomipramine to 50mg and recheck EKG 04/06 (Clomipramine was started about 2 weeks ago) REDUCE mirtazapine to 3.25 mg and plan to dc (not sure effective) REDUCE will keep Lexapro at 10 mg due to risk of serotonin syndrome continue gabapentin 300 mg t.i.d. p.r.n. for anxiety as there is a desire to find alternative to benzos given patient's ETOH abuse history - may need to reduce dosage if too sedating REDUCE trazodone to 25 mg with a repeat for insomnia Labs at [facility]: urine test negative; UDS negative Greater than 50% of the session was spent on counseling and/or coordination of care Reason for contiued inpatient stay Substantial Risk for: harm to self, inability to function and med/psych decompensation
[2021-04-06 18:10] VITALS: BP 117/76; PULSE 105; RESP 18; O2SAT 100
[2021-04-06] MEDS: clomiPRAMINE HCl 25 MG CAPSULE 50 MG PO (20:25)
[2021-04-06] MEDS: traZODone HCL 25 MG HALFTAB PO ×2 (21:51→21:52)
[2021-04-06] MEDS: Mirtazapine 7.5 MG TABLET 3.75 MG PO (21:51)
--- NOTE | 2021-04-07 | ECG_ITS ---
Test Reason : abnormal EKG with QRS-T angle Blood Pressure : / mmHG Vent. Rate : 074 BPM Atrial Rate : 074 BPM P-R Int : 132 ms QRS Dur : 082 ms QT Int : 388 ms P-R-T Axes : 059 077 012 degrees QTc Int : 430 ms Normal sinus rhythm Normal ECG When compared with ECG of 03-APR-2021 10:08, No significant change was found Referred By: Almaz Hammer Electronically Signed By:FABIANA HUITRON MD
[2021-04-07 06:00] VITALS: BP 133/66; PULSE 119; RESP 16; TEMP 36.7; O2SAT 97
[2021-04-07] MEDS: Escitalopram Oxalate 10 MG TABLET PO (08:04)
--- NOTE | 2021-04-07 11:31 | P.PNPSI_ITS ---
Subjective Subjective Date of Service: 04/07/21 Reason For Visit: OCD Anxiety Disorder Interim History: 04/07/21 pt much clearer logical, coherent. no sedation, no confusion. no muscle weakness, alert and eyes open, slightly pressured speech and perseverating on meds for OCD. much less distraught. Repeat EKG normal. worried about lower lexapro but accepted explanation of possible serotonin syndrome. she will like to retrial increase clomipramne. she reports she slept well last night. On 04/06/21 Pt very tearful; anxious; sedated; making suicidal statement; stating her body feels terrible; stating she does not understand what is going on with her. fearful she wont ever recover; says her body feels terrible but unable to describe; presents with muscle weakness, difficulty keeping eyes open, afraid to be alone. sobbing at times. Needing much reassurance. Initially disheveled but able to take shower and attend to hygiene. patient's parents came fro visit which pt found calming. Review of Systems Review of Systems no muscle weakness today, no lethargy, alert, eating well Constitutional: Reports increased appetite Mental Status Exam Mental Status Exam Narrative: Pt is presenting alert, good eye contqact, eyes open, able to focus and track;sitting up straight , no muscle weakness, oriented to person, place, time, behavior is cooperative, friendly, no tearfulness; dressed in casual attire and good hygiene. mood mildly anxious. speeach with slight pressure. repeats self. thought process is logical; more hopeful;Thought content is on treatment and otherwise pertinent to relevant topics. no delusional content, no paranoid ideations or grandiosity;no passive SI. no HI. There is no evidence of perceptual disturbance. Patients insight and judgment appear fair- poor. Diagnostics Vital Signs (24Hr): Vital Signs - 24 hr 04/06/21 18:10 04/07/21 06:00 Temperature 98.0 F Pulse Rate 105 H 119 H Respiratory Rate 18 16 Blood Pressure 117/76 133/66 Pulse Oximetry 100 97 Body Mass Index 24.6 Labs Results: 04/06/21 10:54 04/06/21 10:54 Labs: Laboratory Results - last 48 hr 04/06/21 04/06/21 10:54 10:54 WBC 6.6 RBC 4.96 Hgb 15.1 Hct 44.2 MCV 89.1 MCH 30.4 MCHC 34.2 RDW 12.5 Plt Count 191 MPV 11.2 Immature Gran % (Auto) 0.3 Neut % (Auto) 68.1 Lymph % (Auto) 24.8 [place] % (Auto) 6.0 Eos % (Auto) 0.5 Baso % (Auto) 0.3 Lymph # (Auto) 1.6 [place] # (Auto) 0.4 Eos # (Auto) 0.0 Baso # (Auto) 0.0 Abs Immat Gran (auto) 0.02 Absolute Neuts (auto) 4.5 Absolute Nucleated RBC 0.000 Nucleated RBC % (auto) 0.0 Sodium 137 Potassium 4.6 Chloride 103 Carbon Dioxide 23 Anion Gap 16 BUN 11 Creatinine 1.08 Estim Creat Clear Calc 71.6 Estimated GFR > 60 Random Glucose 152 H Calcium 9.6 Total Bilirubin 0.4 AST 16 ALT 13 Alkaline Phosphatase 59 Total Protein 7.9 Albumin 4.2 Medications Medications Current Medications Generic Name Dose Route Start Last Admin Trade Name Freq PRN Reason Stop Dose Admin Acetaminophen 650 mg 04/02/21 19:31 Acetaminophen 325 Mg Tablet PO Q6H PRN Headache/Pain Mild Scale (1-3) Al Hydroxide/Mg Hydroxide 30 ml 04/02/21 19:31 Magnesium Hydrox/Alum Hydrox 30 Ml Oral.Susp PO Q6H PRN Heartburn/Nausea Clomipramine HCl 50 mg 04/06/21 21:00 04/06/21 20:25 Clomipramine Hcl 25 Mg Capsule PO 50 mg BEDTIME CONTRERAS Administration Escitalopram Oxalate 10 mg 04/07/21 09:00 04/07/21 08:04 Escitalopram Oxalate 10 Mg Tablet PO 10 mg DAILY CONTRERAS Administration Gabapentin 300 mg 04/03/21 15:18 04/06/21 21:50 Gabapentin 300 Mg Capsule PO 300 mg TID PRN Administration anxiety Ketoconazole 1 appl 04/04/21 21:00 04/04/21 21:02 Ketoconazole 2 % Shampoo 120 Ml Btl TOPICAL Not Given MoTh@2100 [facility] Protocol Magnesium Hydroxide 30 ml 04/02/21 19:31 Milk Of Magnesia 30 Ml Oral.Susp PO DAILY PRN Constipation Non-Formulary Medication 0.01 % 04/02/21 21:00 Fluocinolone Oil EAR-BOTH BID CONTRERAS Non-Formulary Medication 1 tab 04/03/21 09:00 Pilar Mann PO DAILY CONTRERAS Trazodone HCl 25 mg 04/06/21 21:00 04/06/21 21:51 Trazodone Hcl 25 Mg Halftab PO 25 mg BEDTIME CONTRERAS Administration Trazodone HCl 25 mg 04/06/21 10:06 04/06/21 21:52 Trazodone Hcl 25 Mg Halftab PO 25 mg BEDTIME PRN Administration continued insomnia Allergies Allergies Allergy/AdvReac Type Severity Reaction Status Date / Time No Known Allergies Allergy Verified 04/02/21 15:23 Assessment & Plan Assessment & Plan (1) OCD (obsessive compulsive disorder): Qualifiers: Qualified Code(s): F42.9 - Obsessive-compulsive disorder, unspecified Status: Chronic Code(s): F42.9 - Obsessive-compulsive disorder, unspecified Assessment and Plan: IMPRESSION: Patient is a 25-year-old female, college graduate with history of OCD and alcohol abuse (in sustained remission) who presents for worsening OCD symptoms of intrusive thoughts about suicide and having now become suicidal. Patient has suicidal thoughts remain intrusive however she denies any desire to harm herself and wants treatment Patient has OCD is chronic and goes through periods of exacerbation; she seems to have done best when also engaged in CBT therapy which she would like to get back into. Lexapro seems to have partially worked to varying degrees; clomipramine was just started. Is unlikely that Lexapro dose, when raised to 40 mg caused increased anxiety is this coincided with patient being isolated due to COVID; also SI started before clomipramine was added as a medication; that said she is on 3 agents that increase serotonin and could have a touch of serotonin syndrome. thoroughly discussed treatment options including increasing the doses of meds s he is on or trying new meds. Patient would like to see if clomipramine could be effective at higher doses; she agrees to lower mirtazapine to 7.5 mg while titrating clomipramine; will leave Lexapro as is. 04/07/21 assessment: Differential- ? if pt having reaction to clomipramine, gabapentin , or medication combination. R/O serotonin syndrome vs adverse reaction to medications. Chem profile and CBC normal. Repeat EKG normal. Plan: Patient on CV Q 5 minutes checks Continue clomipramine to 50mg and retry increase to 75mg on 04/08 if continues to do well (Clomipramine was started about 2 weeks ago) continue mirtazapine to 3.25 mg for now and plan to dc (not sure effective) Continue will keep Lexapro at 10 mg due to risk of serotonin syndrome continue gabapentin 300 mg t.i.d. p.r.n. for anxiety as there is a desire to find alternative to benzos given patient's ETOH abuse history - may need to reduce dosage if too sedating Continue trazodone to 25 mg with a repeat for insomnia Greater than 50% of the session was spent on counseling and/or coordination of care Reason for contiued inpatient stay Substantial Risk for: harm to self, inability to function, rapid decompensation and med/psych decompensation
[2021-04-07 18:00] VITALS: BP 130/74; PULSE 107; RESP 16; TEMP 36.2; O2SAT 98
[2021-04-07] MEDS: clomiPRAMINE HCl 25 MG CAPSULE 50 MG PO (20:11)
[2021-04-07] MEDS: traZODone HCL 25 MG HALFTAB PO (21:42)
[2021-04-07] MEDS: Gabapentin 300 MG CAPSULE PO (21:42)
[2021-04-08 06:00] VITALS: BP 109/66; PULSE 100; TEMP 36.3; O2SAT 99
[2021-04-08] MEDS: Escitalopram Oxalate 10 MG TABLET PO (08:47)
--- NOTE | 2021-04-08 12:25 | P.PNPSI_ITS ---
Subjective Subjective Date of Service: 04/08/21 Reason For Visit: OCD Anxiety Disorder Interim History: 04/08/21 pt tearful and worried about meds, sleep, wanting to go home but not feeling ready to go home; Pt feeling better physically. no dizziness, no sedation, no weakness. would like to try to increase clomipramine again now that lexapro reduce and remeron d/c. pt negotiates taking 25 mg of clomipramine at 3pm so that she will beless anxious about taking it with the 50 mg at bedtime. pt scheduled for repeat ekg 04/09/21 04/07/21 pt much clearer logical, coherent. no sedation, no confusion. no muscle weakness, alert and eyes open, slightly pressured speech and perseverating on meds for OCD. much less distraught. Repeat EKG normal. worried about lower lexapro but accepted explanation of possible serotonin syndrome. she will like to retrial increase clomipramne. she reports she slept well last night. On 04/06/21 Pt very tearful; anxious; sedated; making suicidal statement; stating her body feels terrible; stating she does not understand what is going on with her. fearful she wont ever recover; says her body feels terrible but unable to describe; presents with muscle weakness, difficulty keeping eyes open, afraid to be alone. sobbing at times. Needing much reassurance. Initially disheveled but able to take shower and attend to hygiene. patient's parents came fro visit [facility] pt found calming. Review of Systems Review of Systems no muscle weakness today, no lethargy, alert, eating well Yes all other systems are reviewed and are negative Constitutional: Reports increased appetite, Reports malaise, Reports poor appetite and Reports weakness Reports weakness Mental Status Exam Mental Status Exam Narrative: Pt is presenting alert, good eye contact, eyes open, able to focus and track;sitting up straight , no muscle weakness, oriented to person, place, time, behavior is cooperative, friendly, tearful; dressed in casual attire and good hygiene. mood anxious. no pressured speech. thought process is logical; worried ;Thought content is on treatment and symptoms. no delusional content, no paranoid ideation or grandiosity;no passive SI. no HI. There is no evidence of perceptual disturbance. Patients insight and judgment appear fair- poor. Diagnostics Vital Signs (24Hr): Vital Signs - 24 hr 04/07/21 18:00 04/08/21 06:00 Temperature 97.2 F 97.4 F Pulse Rate 107 H 100 Respiratory Rate 16 Blood Pressure 130/74 109/66 Pulse Oximetry 98 99 Body Mass Index 24.6 Labs Results: 04/06/21 10:54 04/06/21 10:54 Medications Medications Current Medications Generic Name Dose Route Start Last Admin Trade Name Freq PRN Reason Stop Dose Admin Acetaminophen 650 mg 04/02/21 19:31 Acetaminophen 325 Mg Tablet PO Q6H PRN Headache/Pain Mild Scale (1-3) Al Hydroxide/Mg Hydroxide 30 ml 04/02/21 19:31 Magnesium Hydrox/Alum Hydrox 30 Ml Oral.Susp PO Q6H PRN Heartburn/Nausea Clomipramine HCl 50 mg 04/06/21 21:00 04/07/21 20:11 Clomipramine Hcl 25 Mg Capsule PO 50 mg BEDTIME CONTRERAS Administration Clomipramine HCl 25 mg 04/09/21 15:00 Clomipramine Hcl 25 Mg Capsule PO DAILY@1500 [facility] Escitalopram Oxalate 10 mg 04/07/21 09:00 04/08/21 08:47 Escitalopram Oxalate 10 Mg Tablet PO 10 mg DAILY CONTRERAS Administration Gabapentin 300 mg 04/03/21 15:18 04/07/21 21:42 Gabapentin 300 Mg Capsule PO 300 mg TID PRN Administration anxiety Ketoconazole 1 appl 04/04/21 21:00 04/04/21 21:02 Ketoconazole 2 % Shampoo 120 Ml Btl TOPICAL Not Given MoTh@2100 [facility] Protocol Magnesium Hydroxide 30 ml 04/02/21 19:31 Milk Of Magnesia 30 Ml Oral.Susp PO DAILY PRN Constipation Non-Formulary Medication 0.01 % 04/02/21 21:00 Fluocinolone Oil EAR-BOTH BID CONTRERAS Non-Form Med ( 1 tab 04/03/21 09:00 04/08/21 08:47 Pilar Fe 1 Tab) PO 1 tab DAILY CONTRERAS Administration Trazodone HCl 25 mg 04/06/21 21:00 04/07/21 21:42 Trazodone Hcl 25 Mg Halftab PO 25 mg BEDTIME CONTRERAS Administration Trazodone HCl 25 mg 04/06/21 10:06 04/06/21 21:52 Trazodone Hcl 25 Mg Halftab PO 25 mg BEDTIME PRN Administration continued insomnia Allergies Allergies Allergy/AdvReac Type Severity Reaction Status Date / Time No Known Allergies Allergy Verified 04/02/21 15:23 Assessment & Plan Assessment & Plan (1) OCD (obsessive compulsive disorder): Qualifiers: Qualified Code(s): F42.9 - Obsessive-compulsive disorder, unspecified Status: Chronic Code(s): F42.9 - Obsessive-compulsive disorder, unspecified Assessment and Plan: IMPRESSION: Patient is a 25-year-old female, college graduate with history of OCD and alcohol abuse (in sustained remission) who presents for worsening OCD symptoms of intrusive thoughts about suicide and having now become suicidal. Patient has suicidal thoughts remain intrusive however she denies any desire to harm herself and wants treatment Patient has OCD is chronic and goes through periods of exacerbation; she seems to have done best when also engaged in CBT therapy which she would like to get back into. Lexapro seems to have partially worked to varying degrees; clomipramine was just started. Is unlikely that Lexapro dose, when raised to 40 mg caused increased anxiety is this coincided with patient being isolated due to COVID; also SI started before clomipramine was added as a medication; farnaz t said she is on 3 agents that increase serotonin and could have a touch of serotonin syndrome. thoroughly discussed treatment options including increasing the doses of meds she is on or trying new meds. Patient would like to see if clomipramine could be effective at higher doses; she agrees to lower mirtazapine to 7.5 mg while titrating clomipramine; will leave Lexapro as is. 04/08/21 assessment: Differential- ? if pt had reaction to clomipramine, gabapentin , or medication combination. R/O serotonin syndrome vs adverse reaction to medications. Chem profile and CBC normal. Repeat EKG normal. Plan: Patient on CV Q 5 minutes checks add clomipramine 25 mg at 3 pm and Continue clomipramine to 50mg at HS continue mirtazapine to 3.25 mg for now and plan to dc (not sure effective) Continue will keep Lexapro at 10 mg due to risk of serotonin syndrome continue gabapentin 300 mg t.i.d. p.r.n. for anxiety as there is a desire to find alternative to benzos given patient's ETOH abuse history - may need to reduce dosage if too sedating Continue trazodone to 25 mg with a repeat for insomnia repeat ekg scheduled for 04/09/21 Greater than 50% of the session was spent on counseling and/or coordination of care Reason for contiued inpatient stay Substantial Risk for: harm to self, inability to function, rapid decompensation and med/psych decompensation
[2021-04-08 16:00] VITALS: BP 123/73; PULSE 116; TEMP 37.1
[2021-04-08 16:40] VITALS: BP 108/65; PULSE 107
[2021-04-08] MEDS: clomiPRAMINE HCl 25 MG CAPSULE 50 MG PO (21:18)
[2021-04-08] MEDS: traZODone HCL 25 MG HALFTAB PO (22:06)
[2021-04-08] MEDS: Gabapentin 300 MG CAPSULE PO (22:11)
[2021-04-09 06:00] VITALS: BP 104/53; PULSE 90; RESP 18; TEMP 36.6; O2SAT 95
[2021-04-09] MEDS: Escitalopram Oxalate 10 MG TABLET PO (08:35)
--- NOTE | 2021-04-09 09:00 | ECG_ITS ---
Test Reason : QTC Blood Pressure : / mmHG Vent. Rate : 085 BPM Atrial Rate : 085 BPM P-R Int : 134 ms QRS Dur : 076 ms QT Int : 384 ms P-R-T Axes : 051 066 -19 degrees QTc Int : 456 ms Normal sinus rhythm Normal EKG When compared with ECG of 07-APR-2021 12:49, No significant change was found Referred By: Carlin Medley Electronically Signed By:AMANDA SMITH
--- NOTE | 2021-04-09 09:43 | HO.PSYCHPN ---
Subjective Subjective Date of Service: 04/09/21 Reason For Visit: OCD Anxiety Disorder Interim History: met with patient and then with her parents Patient reports that she is feeling physically much better since this weekend. She describes her symptoms and the covering providers concern for possible serotonin syndrome ( versus panic attack); symptoms have now fully resolved. patient however continues to be plagued by hopeless feelings that she will ever get better and is very worried about returning to intrusive thoughts about killing herself. Currently she intermittently has SI but is passive and able to be ignored. Qa Engineer discussed medications with both patient and her family and they agree he on keeping the Lexapro 10 mg and slowly titrating clomipramine to 100 mg. Mental Status Exam Mental Status Exam Narrative: Pt is alert and oriented; behavior is cooperative; dressed in casual attire with adequate hygiene; mood is described as depressed and anxious and affect congruent; eye contact appropriate; Speech is normal rate, volume and prosody and not pressured; no psychomotor agitation/retardation present; thought process is organized, linear, logical and goal directed. Thought content is perseverative on worries about worsening symptoms; no delusional content, paranoid ideations or grandiosity; denies any active SI/HI. There is no evidence of perceptual disturbance. Patients insight and judgment appear intact. Diagnostics Vital Signs (24Hr): Vital Signs - 24 hr 04/08/21 16:00 04/08/21 16:40 04/09/21 06:00 Temperature 98.7 F 97.8 F Pulse Rate 116 H 107 H 90 Respiratory Rate 18 Blood Pressure 123/73 108/65 104/53 L Pulse Oximetry 95 Body Mass Index 24.6 Labs Results: 04/06/21 10:54 04/06/21 10:54 Medications Medications Current Medications Generic Name Dose Route Start Last Admin Trade Name Freq PRN Reason Stop Dose Admin Acetaminophen 650 mg 04/02/21 19:31 Acetaminophen 325 Mg Tablet PO Q6H PRN Headache/Pain Mild Scale (1-3) Al Hydroxide/Mg Hydroxide 30 ml 04/02/21 19:31 Magnesium Hydrox/Alum Hydrox 30 Ml Oral.Susp PO Q6H PRN Heartburn/Nausea Clomipramine HCl 50 mg 04/06/21 21:00 04/08/21 21:18 Clomipramine Hcl 25 Mg Capsule PO 50 mg BEDTIME CONTRERAS Administration Clomipramine HCl 25 mg 04/09/21 15:00 Clomipramine Hcl 25 Mg Capsule PO DAILY@1500 [facility] Escitalopram Oxalate 10 mg 04/07/21 09:00 04/09/21 08:35 Escitalopram Oxalate 10 Mg Tablet PO 10 mg DAILY CONTRERAS Administration Gabapentin 300 mg 04/03/21 15:18 04/08/21 22:11 Gabapentin 300 Mg Capsule PO 300 mg TID PRN Administration anxiety Ketoconazole 1 appl 04/04/21 21:00 04/08/21 23:39 Ketoconazole 2 % Shampoo 120 Ml Btl TOPICAL Not Given MoTh@2100 [facility] Protocol Magnesium Hydroxide 30 ml 04/02/21 19:31 Milk Of Magnesia 30 Ml Oral.Susp PO DAILY PRN Constipation Non-Formulary Medication 0.01 % 04/02/21 21:00 Fluocinolone Oil EAR-BOTH BID [facility] Non-Form Med ( 1 tab 04/03/21 09:00 04/09/21 08:40 Junelle Fe 1 Tab) PO 1 tab DAILY [facility] Administration Trazodone HCl 25 mg 04/06/21 21:00 04/08/21 22:06 Trazodone Hcl 25 Mg Halftab PO 25 mg BEDTIME CONTRERAS Administration Trazodone HCl 25 mg 04/06/21 10:06 04/06/21 21:52 Trazodone Hcl 25 Mg Halftab PO 25 mg BEDTIME PRN Administration continued insomnia Allergies Allergies Allergy/AdvReac Type Severity Reaction Status Date / Time No Known Allergies Allergy Verified 04/02/21 15:23 Assessment & Plan Assessment & Plan (1) OCD (obsessive compulsive disorder): Qualifiers: Qualified Code(s): F42.9 - Obsessive-compulsive disorder, unspecified Status: Chronic Code(s): F42.9 - Obsessive-compulsive disorder, unspecified Assessment and Plan: IMPRESSION: Patient is a 25-year-old female, college graduate with history of OCD and alcohol abuse (in sustained remission) who presents for worsening OCD symptoms of intrusive thoughts about suicide and having now become suicidal. Patient has suicidal thoughts remain intrusive however she denies any desire to harm herself and wants treatment Patient has OCD is chronic and goes through periods of exacerbation; she seems to have done best when also engaged in CBT therapy which she would like to get back into. Lexapro seems to have partially worked to varying degrees; clomipramine was just started. Is unlikely that Lexapro dose, when raised to 40 mg caused increased anxiety is this coincided with patient being isolated due to COVID; also SI started before clomipramine was added as a medication; that said she is on 3 agents that increase serotonin and could have a touch of serotonin syndrome. thoroughly discussed treatment options including increasing the doses of meds she is on or trying new meds. Patient would like to see if clomipramine could be effective at higher doses; she agrees to lower mirtazapine to 7.5 mg while titrating clomipramine; will leave Lexapro as is. 04/08/21 assessment: Differential- ? if pt had reaction to clomipramine, gabapentin , or medication combination. R/O serotonin syndrome vs adverse reaction to medications. Chem profile and CBC normal. Repeat EKG normal. job specification writer discussed case with dr. Rapp who agrees with plan for med regimen Plan: Patient on CV Q 5 minutes checks continue clomipramine 25 mg at 3 pm and Continue clomipramine to 50mg at HS DC mirtazapine Continue will keep Lexapro at 10 mg due to risk of serotonin syndrome (and discontinuation syndrome) continue gabapentin 300 mg t.i.d. p.r.n. for anxiety as there is a desire to find alternative to benzos given patient's ETOH abuse history - may need to reduce dosage if too sedating Continue trazodone to 25 mg with a repeat for insomnia Greater than 50% of the session was spent on counseling and/or coordination of care Reason for contiued inpatient stay Substantial Risk for: med/psych decompensation
[2021-04-09] MEDS: clomiPRAMINE HCl 25 MG CAPSULE PO (14:43)
[2021-04-09 18:03] VITALS: BP 112/76; PULSE 102; RESP 18; TEMP 36.2; O2SAT 98
[2021-04-09] MEDS: clomiPRAMINE HCl 25 MG CAPSULE 50 MG PO (20:00)
[2021-04-09] MEDS: traZODone HCL 25 MG HALFTAB PO (21:58)
[2021-04-09] MEDS: Gabapentin 300 MG CAPSULE PO (21:59)
[2021-04-10] MEDS: Escitalopram Oxalate 10 MG TABLET PO (09:04)
--- NOTE | 2021-04-10 09:52 | P.PNPSI_ITS ---
Subjective Subjective Date of Service: 04/10/21 Reason For Visit: OCD Anxiety Disorder Interim History: met with patient boyfriend Patient reports that she slept well last night however has increasing feelings of hopelessness and is intermittently plagued with fears of worsening symptoms. She is utilizing coping skills that help her calm down and confront her cognitive distortions but she frequently has to remind herself that it's untrue that she'll never get better. patient agrees to increasing clomipramine to 100 mg but wants it to be in divided doses to which specification writer agrees. She denies any active suicidality, but remains with a lot of fear that her symptoms will eventually get bad enough that she will have to kill herself Mental Status Exam Mental Status Exam Narrative: Pt is alert and oriented; behavior is cooperative; dressed in casual attire with adequate hygiene; mood is described as depressed and anxious and affect congruent; eye contact appropriate; Speech is normal rate, volume and prosody and not pressured; no psychomotor agitation/retardation present; thought process is organized, linear, logical and goal directed. Thought content is perseverative on worries about worsening symptoms; no delusional content, paranoid ideations or grandiosity; denies any active SI/HI. There is no evidence of perceptual disturbance. Patients insight and judgment appear intact. Diagnostics Vital Signs (24Hr): Vital Signs - 24 hr 04/09/21 18:03 Temperature 97.1 F Pulse Rate 102 H Respiratory Rate 18 Blood Pressure 112/76 Pulse Oximetry 98 Body Mass Index 24.6 Labs Results: 04/06/21 10:54 04/06/21 10:54 Medications Medications Current Medications Generic Name Dose Route Start Last Admin Trade Name Galdinoq PRN Reason Stop Dose Admin Acetaminophen 650 mg 04/02/21 19:31 Acetaminophen 325 Mg Tablet PO Q6H PRN Headache/Pain Mild Scale (1-3) Al Hydroxide/Mg Hydroxide 30 ml 04/02/21 19:31 Magnesium Hydrox/Alum Hydrox 30 Ml Oral.Susp PO Q6H PRN Heartburn/Nausea Clomipramine HCl 50 mg 04/06/21 21:00 04/09/21 20:00 Clomipramine Hcl 25 Mg Capsule PO 50 mg BEDTIME CONTRERAS Administration Clomipramine HCl 25 mg 04/09/21 15:00 04/09/21 14:43 Clomipramine Hcl 25 Mg Capsule PO 25 mg DAILY@1500 [facility] Administration Escitalopram Oxalate 10 mg 04/07/21 09:00 04/10/21 09:04 Escitalopram Oxalate 10 Mg Tablet PO 10 mg DAILY CONTRER[facility] Administration Gabapentin 300 mg 04/03/21 15:18 04/09/21 21:59 Gabapentin 300 Mg Capsule PO 300 mg TID PRN Administration anxiety Ketoconazole 1 appl 04/04/21 21:00 04/08/21 23:39 Ketoconazole 2 % Shampoo 120 Ml Btl TOPICAL Not Given MoTh@2100 [facility] Protocol Magnesium Hydroxide 30 ml 04/02/21 19:31 Milk Of Magnesia 30 Ml Oral.Susp PO DAILY PRN Constipation Non-Formulary Medication 0.01 % 04/02/21 21:00 Fluocinolone Oil EAR-BOTH BID [facility] Non-Form Med ( 1 tab 04/03/21 09:00 04/10/21 09:09 Junelle Fe 1 Tab) PO 1 tab DAILY [facility] Administration Trazodone HCl 25 mg 04/06/21 21:00 04/09/21 21:58 Trazodone Hcl 25 Mg Halftab PO 25 mg BEDTIME CONTRERAS Administration Trazodone HCl 25 mg 04/06/21 10:06 04/06/21 21:52 Trazodone Hcl 25 Mg Halftab PO 25 mg BEDTIME PRN Administration continued insomnia Allergies Allergies Allergy/AdvReac Type Severity Reaction Status Date / Time No Known Allergies Allergy Verified 04/02/21 15:23 Assessment & Plan Assessment & Plan (1) OCD (obsessive compulsive disorder): Qualifiers: Qualified Code(s): F42.9 - Obsessive-compulsive disorder, unspecified Status: Chronic Code(s): F42.9 - Obsessive-compulsive disorder, unspecified Assessment and Plan: IMPRESSION: Patient is a 25-year-old female, college graduate with history of OCD and alcohol abuse (in sustained remission) who presents for worsening OCD symptoms of intrusive thoughts about suicide and having now become suicidal. Patient has suicidal thoughts remain intrusive however she denies any desire to harm herself and wants treatment Patient has OCD is chronic and goes through periods of exacerbation; she seems to have done best when also engaged in CBT therapy which she would like to get back into. Lexapro seems to have partially worked to varying degrees; clomipramine was just started. Is unlikely that Lexapro dose, when raised to 40 mg caused increased anxiety is this coincided with patient being isolated due to COVID; also SI started before clomipramine was added as a medication; that said she is on 3 agents that increase serotonin and could have a touch of serotonin syndrome. thoroughly discussed treatment options including increasing the doses of meds she is on or trying new meds. Patient would like to see if clomipramine could be effective at higher doses; she agrees to lower mirtazapine to 7.5 mg while titrating clomipramine; will leave Lexapro as is. 04/08/21 assessment: Differential- symptoms due to either serotonin syndrome vs adverse reaction to medications Vs Panic attack Chem profile and CBC normal. Repeat EKG normal. discussed case with dr. Rapp who agrees with med regimen Plan: Patient on CV Q 5 minutes checks clomipramine 25 mg BID at 9 and 3pm Continue clomipramine to 50mg at HS DC'd mirtazapine Continue will keep Lexapro at 10 mg due to risk of serotonin syndrome (and discontinuation syndrome) continue gabapentin 300 mg t.i.d. p.r.n. for anxiety as there is a desire to find alternative to benzos given patient's ETOH abuse history - may need to reduce dosage if too sedating Continue trazodone to 25 mg with a repeat for insomnia Greater than 50% of the session was spent on counseling and/or coordination of care Reason for contiued inpatient stay Substantial Risk for: med/psych decompensation
[2021-04-10] MEDS: clomiPRAMINE HCl 25 MG CAPSULE PO ×2 (14:33→17:46)
[2021-04-10 17:56] VITALS: BP 131/87; PULSE 102; RESP 18; TEMP 36.7; O2SAT 100
[2021-04-10] MEDS: clomiPRAMINE HCl 25 MG CAPSULE 50 MG PO (20:41)
[2021-04-10] MEDS: traZODone HCL 25 MG HALFTAB PO (21:46)
[2021-04-10] MEDS: Gabapentin 300 MG CAPSULE PO (21:50)
[2021-04-11] MEDS: traZODone HCL 25 MG HALFTAB PO (01:07)
[2021-04-11 06:00] VITALS: BP 100/58; PULSE 118; RESP 20; TEMP 36.2; O2SAT 96
[2021-04-11 07:00] VITALS: BMI 24.3
[2021-04-11] MEDS: Escitalopram Oxalate 10 MG TABLET PO (09:34)
[2021-04-11] MEDS: clomiPRAMINE HCl 25 MG CAPSULE PO ×2 (09:38→14:17)
[2021-04-11] MEDS: Ketoconazole 2 % Shampoo 120 ML BTL 1 APPL TOPICAL (09:45)
--- NOTE | 2021-04-11 10:44 | P.PNPSI_ITS ---
Subjective Subjective Date of Service: 04/11/21 Reason For Visit: OCD Anxiety Disorder Interim History: met with pt and parents pt tearful, rocking in chair, face down; she reports feeling hopeless that she'll ever get better. reports little sleep last night, plagued with obsessive thoughts which continued today. She reports her first thought was that unless Andrea (boyfriend) was perfect looking, she will never get better. Pt expresses how stupid she feels having this thought, knowing it's not true, knowing it sounds ridiculous but unable to stop having it. She says this leads to despair as she thinks she cannot live like this. Pt says thoughts advanced to sucidality pondering is suicide an option, how would she do it, would it hurt... pt says she does not want to kill herself but the thoughts about it and about not getting better can get overwhelming. She she very much wants to go home thursday as she misses her family. However, she is unable to say that she'll be able to stay safe. Parents feel she has hx of staying safe and reaching out for help whenever she needs it, however, the agree that she is not doing much better than when was first admitted and would like her to stay longer. Mid Level Clinician and pt agreed to keep Clomipramine at current dose and increase trazodone for sleep and and a prn trial of Seroquel for continued insomnia (scientific technical writer reviewed risks/side-effects of seroquel and pt understands and agrees to take). Mental Status Exam Mental Status Exam Narrative: Pt is alert and oriented; behavior: rocking in chair, crying; dressed in casual attire with adequate hygiene; mood is described as hopeless and anxious and affect congruent,; eye contact avoidant; Speech is normal rate, volume and prosody and not pressured; no psychomotor agitation/retardation pr esent; thought process is organized, linear, logical and goal directed. Thought content is perseverating on emotional pain caused by intrusive thoughts, worrying if she'll be safe; no delusional content, paranoid ideations or grandiosity; denies any active SI/HI however she has intrusive thoughts of suicidal ideation. There is no evidence of perceptual disturbance. Patients insight and judgment appear intact. Diagnostics Vital Signs (24Hr): Vital Signs - 24 hr 04/10/21 17:56 04/11/21 06:00 Temperature 98.1 F 97.2 F Pulse Rate 102 H 118 H Respiratory Rate 18 20 Blood Pressure 131/87 100/58 L Pulse Oximetry 100 96 Body Mass Index 24.6 Labs Results: 04/06/21 10:54 04/06/21 10:54 Medications Medications Current Medications Generic Name Dose Route Start Last Admin Trade Name Freq PRN Reason Stop Dose Admin Acetaminophen 650 mg 04/02/21 19:31 Acetaminophen 325 Mg Tablet PO Q6H PRN Headache/Pain Mild Scale (1-3) Al Hydroxide/Mg Hydroxide 30 ml 04/02/21 19:31 Magnesium Hydrox/Alum Hydrox 30 Ml Oral.Susp PO Q6H PRN Heartburn/Nausea Clomipramine HCl 50 mg 04/06/21 21:00 04/10/21 20:41 Clomipramine Hcl 25 Mg Capsule PO 50 mg BEDTIME CONTRERAS Administration Clomipramine HCl 25 mg 04/11/21 15:00 Clomipramine Hcl 25 Mg Capsule PO BID@0900,1500 CONTRERAS Escitalopram Oxalate 10 mg 04/07/21 09:00 04/11/21 09:34 Escitalopram Oxalate 10 Mg Tablet PO 10 mg DAILY CONTRERAS Administration Gabapentin 300 mg 04/03/21 15:18 04/10/21 21:50 Gabapentin 300 Mg Capsule PO 300 mg TID PRN Administration anxiety Ketoconazole 1 appl 04/04/21 21:00 04/11/21 09:45 Ketoconazole 2 % Shampoo 120 Ml Btl TOPICAL 1 appl MoTh@2100 CONTRERAS Administration Protocol Magnesium Hydroxide 30 ml 04/02/21 19:31 Milk Of Magnesia 30 Ml Oral.Susp PO DAILY PRN Constipation Non-Formulary Medication 0.01 % 04/02/21 21:00 Fluocinolone Oil EAR-BOTH BID CONTRERAS Non-Form Med ( 1 tab 04/03/21 09:00 04/11/21 09:34 Pilar Fe 1 Tab) PO 1 tab DAILY CONTRERAS Administration Trazodone HCl 25 mg 04/06/21 21:00 04/10/21 21:46 Trazodone Hcl 25 Mg Halftab PO 25 mg BEDTIME CONTRERAS Administration Trazodone HCl 25 mg 04/06/21 10:06 04/11/21 01:07 Trazodone Hcl 25 Mg Halftab PO 25 mg BEDTIME PRN Administration continued insomnia Allergies Allergies Allergy/AdvReac Type Severity Reaction Status Date / Time No Known Allergies Allergy Verified 04/02/21 15:23 Assessment & Plan Assessment & Plan (1) OCD (obsessive compulsive disorder): Qualifiers: Qualified Code(s): F42.9 - Obsessive-compulsive disorder, unspecified Status: Chronic Code(s): F42.9 - Obsessive-compulsive disorder, unspecified Assessment and Plan: IMPRESSION: Patient is a 25-year-old female, college graduate with history of OCD and alcohol abuse (in sustained remission) who presents for worsening OCD symptoms of intrusive thoughts about suicide and having now become suicidal. Patient has suicidal thoughts remain intrusive however she denies any desire to harm herself and wants treatment Patient has OCD is chronic and goes through periods of exacerbation; she seems to have done best when also engaged in CBT therapy which she would like to get back into. Lexapro seems to have partially worked to varying degrees; clomipramine was just started. Is unlikely that Lexapro dose, when raised to 40 mg caused increased anxiety is this coincided with patient being isolated due to COVID; also SI started before clomipramine was added as a medication; that said she is on 3 agents that increase serotonin and could have a touch of serotonin syndrome. thoroughly discussed treatment options including increasing the doses of meds she is on or trying new meds. Patient would like to see if clomipramine could be effective at higher doses; she agrees to lower mirtazapine to 7.5 mg while titrating clomipramine; 04/08/21 assessment: Differential- symptoms due to either serotonin syndrome vs adverse reaction to medications Vs Panic attack. Seems more likey event was due to panic as she's had similar presentations during past panic attacks and symptoms resolved on their own after a few hours and remained so, w/out any medication changes (meds were changed going forward, but she had already taken her Lexapro). At any rate, will leave SS as differential and be mindful of risk going forward discussed case with dr. Rapp who agrees with med regimen. Will leave lexapro at 10mg, fully dc trazodone and slowly titrate clomipramine Reasoning Pt reports ongoing hopeless feelings about ever getting better and intermittent thoughts about suicide. On the one hand, she is not much better than on admission and SI is bothersome and concerning. On the other hand, both she and her parents think her risk of self harm is low as she is always around either her parents or boyfriend, is very vocal about her struggles and has a solid history of reaching out for help. Her boyfriend reports that with some exceptions, for the past several months she typically has only 1-2 good days a week and the rest are riddled with anxiety, hopeless feelings and SI, thus making her current presentation very similar to her typical outpt presentation. While scientific technical writer thinks that she is likely low risk (pt does not want to self harm, would very likely reach out for help if unsafe and return to the hospital), her ongoing intrusive thoughts about SI have remained which is why she came to inpatient; and though she's proven herself resilient and tolerated these thoughts in the past, there is a limit to her endurance . A barrier to discharge is that thus far a pathway out of these overwhelming symptoms has not been determined. Her meds are still being titrated and it's not clear if clomipramine will prove effective. Only on an inpatient unit can this and other meds be titrated quickly since here, her Vitals and side-effects be be monitored by professionals. Whereas if she were an outpatient such titrations could take months, leaving her in constant state of hopelessness and with intrusive SI. Plan: Patient on CV Q 15 minutes checks clomipramine 25 mg BID at 9 and 3pm Continue clomipramine to 50mg at HS increase trazodone back to 50mg since insomnia will add Seroquel 50mg prn for continued insomnia DC'd mirtazapine Continue will keep Lexapro at 10 mg due to risk of serotonin syndrome (and discontinuation syndrome) continue gabapentin 300 mg t.i.d. p.r.n. for anxiety as there is a desire to find alternative to benzos given patient's ETOH abuse history (binge drank weekends to get herself to sleep)- may need to reduce dosage if too sedating Greater than 50% of the session was spent on counseling and/or coordination of care Reason for contiued inpatient stay Substantial Risk for: rapid decompensation
[2021-04-11 16:13] VITALS: BP 147/86; PULSE 108; RESP 18; TEMP 36.5; O2SAT 98
[2021-04-11] MEDS: Gabapentin 300 MG CAPSULE PO (18:39)
[2021-04-11] MEDS: clomiPRAMINE HCl 25 MG CAPSULE 50 MG PO (20:21)
[2021-04-11] MEDS: QUEtiapine Fumarate 50 MG TABLET PO (21:43)
[2021-04-11] MEDS: traZODone HCL 50 MG TABLET PO (21:43)
[2021-04-12] MEDS: Escitalopram Oxalate 10 MG TABLET PO (08:14)
[2021-04-12] MEDS: clomiPRAMINE HCl 25 MG CAPSULE PO ×2 (08:14→16:54)
--- NOTE | 2021-04-12 09:45 | P.PNPSI_ITS ---
Subjective Subjective Date of Service: 04/12/21 Reason For Visit: OCD Anxiety Disorder Interim History: This morning, patient was sitting by herself in a chair in the day room, with a blank stare and struggling to speak. 911 Emergency Dispatcher was called over to assess. Patient was able to follow directions and force herself to speak and explained that she thinks she is having moment of dissociation, trying to distance herself from unwanted thoughts about dying. 911 Emergency Dispatcher and patient engaged in a grounding technique which helped patient has dissociated experience resolve. She reported that she is having ongoing intrusive thoughts about suicide and is worried that she is going to in the hospital. She also reports she did not sleep at all last night and that her body is exhausted but her mind will not stop racing. Patient agreed to take a shower, hoping that would further help her remain grounded. 911 Emergency Dispatcher discussed with her and then her parents who came to the unit that she should remain for longer admission given these continued worrisome symptoms. Patient very much wanted to go home, but agreed that it was best to stay. Parents agreed as well. service writer advisor discussed medication management with patient and her parents and it was agreed to hold the course on clomipramine 100 mg daily as his only been 2 days at this dose and there is a need to conclude if this medication is affective. Also discussed was adding clonazepam to give patient some relief from anxiety and help her to sleep; Seroquel did not do much. parents and pt report she's had dissocative episodes in the past Discussed case with team and staff who report patient is extremely needy and there is an effort to help her become more engaged in groups and activities that can help her to calm her anxiety and become more capable to self-regulate 911 Emergency Dispatcher discussed case with colleague and who agrees with current medication regimen Medication Compliance: Yes Side effects from medications: No Attending Groups: No Mental Status Exam Mental Status Exam Narrative: Pt is not fully alert but she isoriented; behavior: rocking in chair, with blank stare, slow to respond, then crying; dressed in casual attire with adequate hygiene; mood is described as very anxious and affect congruent,; eye contact avoidant; Speech is a whisper; not pressured; no psychomotor agitation/retardation present; thought process is intermittently mildly disorganized but can become and goal directed. Thought content is hopeless to overcome intrusive thoughts and on suicidal thoughts and images; no delusional content, paranoid ideations or grandiosity; denies she wants to self harm, but cannot stop thinking about it; There is no evidence of perceptual disturbance such as AVH, but dissociative episode. Patients insight and judgment are impaired. Diagnostics Vital Signs (24Hr): Vital Signs - 24 hr 04/11/21 16:13 Temperature 97.7 F Pulse Rate 108 H Respiratory Rate 18 Blood Pressure 147/86 H Pulse Oximetry 98 Body Mass Index 24.3 Labs Results: 04/06/21 10:54 04/06/21 10:54 Medications Medications Current Medications Generic Name Dose Route Start Last Admin Trade Name Freq PRN Reason Stop Dose Admin Acetaminophen 650 mg 04/02/21 19:31 Acetaminophen 325 Mg Tablet PO Q6H PRN Headache/Pain Mild Scale (1-3) Al Hydroxide/Mg Hydroxide 30 ml 04/02/21 19:31 Magnesium Hydrox/Alum Hydrox 30 Ml Oral.Susp PO Q6H PRN Heartburn/Nausea Clomipramine HCl 50 mg 04/06/21 21:00 04/11/21 20:21 Clomipramine Hcl 25 Mg Capsule PO 50 mg BEDTIME CONTRERAS Administration Clomipramine HCl 25 mg 04/11/21 15:00 04/12/21 08:14 Clomipramine Hcl 25 Mg Capsule PO 25 mg BID@0900,1500 CONTRERAS Administration Escitalopram Oxalate 10 mg 04/07/21 09:00 04/12/21 08:14 Escitalopram Oxalate 10 Mg Tablet PO 10 mg DAILY CONTRERAS Administration Gabapentin 300 mg 04/03/21 15:18 04/11/21 18:39 Gabapentin 300 Mg Capsule PO 300 mg TID PRN Administration anxiety Ketoconazole 1 appl 04/04/21 21:00 04/11/21 09:45 Ketoconazole 2 % Shampoo 120 Ml Btl TOPICAL 1 appl MoTh@2100 CONTRERAS Administration Protocol Magnesium Hydroxide 30 ml 04/02/21 19:31 Milk Of Magnesia 30 Ml Oral.Susp PO DAILY PRN Constipation Non-Form Med ( 1 tab 04/03/21 09:00 04/12/21 09:00 Pilar Fe 1 Tab) PO 1 tab DAILY CONTRERAS Administration Quetiapine Fumarate 50 mg 04/11/21 14:31 04/11/21 21:43 Quetiapine Fumarate 50 Mg Tablet PO 50 mg BEDTIME PRN Administration continued insomnia Trazodone HCl 50 mg 04/11/21 21:00 04/11/21 21:43 Trazodone Hcl 50 Mg Tablet PO 50 mg BEDTIME CONTRERAS Administration Allergies Allergies Allergy/AdvReac Type Severity Reaction Status Date / Time No Known Allergies Allergy Verified 04/02/21 15:23 Assessment & Plan Assessment & Plan (1) OCD (obsessive compulsive disorder): Qualifiers: Qualified Code(s): F42.9 - Obsessive-compulsive disorder, unspecified Status: Chronic Code(s): F42.9 - Obsessive-compulsive disorder, unspecified Assessment and Plan: IMPRESSION: Patient is a 25-year-old female, college graduate with history of OCD and alcohol abuse (in sustained remission) who presents for worsening OCD symptoms of intrusive thoughts about suicide and having now become suicidal. Patient has suicidal thoughts remain intrusive however she denies any desire to harm herself and wants treatment Patient has OCD is chronic and goes through periods of exacerbation; she seems to have done best when also engaged in CBT therapy which she would like to get back into. Lexapro seems to have partially worked to varying degrees; clomipramine was just started. Is unlikely that Lexapro dose, when raised to 40 mg caused increased anxiety is this coincided with patient being isolated due to COVID; also SI started before clomipramine was added as a medication; that said she is on 3 agents that increase serotonin and could have a touch of serotonin syndrome. thoroughly discussed treatment options including increasing the doses of meds she is on or trying new meds. Patient would like to see if clomipramine could be effective at higher doses; she agrees to lower mirtazapine to 7.5 mg while titrating clomipramine; 04/08/21 assessment: Differential- symptoms due to either serotonin syndrome vs adverse reaction to medications Vs Panic attack. Seems more likey event was due to panic as she's had similar presentations during past panic attacks and symptoms resolved on their own after a few hours and remained so, w/out any medication changes (meds were changed going forward, but she had already taken her Lexapro). At any rate, will leave SS as differential and be mindful of risk going forward discussed case with dr. Rapp who agrees with med regimen. Will leave lexapro at 10mg, fully dc mirtazapine and slowly titrate clomipramine Reasoning Pt reports ongoing hopeless feelings about ever getting better and intermittent thoughts about suicide. On the one hand, she is not much better than on admission and SI is bothersome and concerning. On the other hand, both she and her parents think her risk of self harm is low as she is always around either h er parents or boyfriend, is very vocal about her struggles and has a solid history of reaching out for help. Her boyfriend reports that with some exceptions, for the past several months she typically has only 1-2 good days a week and the rest are riddled with anxiety, hopeless feelings and SI, thus making her current presentation very similar to her typical outpt presentation. While service writer advisor thinks that she is likely low risk (pt does not want to self harm, would very likely reach out for help if unsafe and return to the hospital), her ongoing intrusive thoughts about SI have remained which is why she came to inpatient; and though she's proven herself resilient and tolerated these thoughts in the past, there is a limit to her endurance . A barrier to discharge is that thus far a pathway out of these overwhelming symptoms has not been determined. Her meds are still being titrated and it's not clear if clomipramine will prove effective. Only on an inpatient unit can this and other meds be titrated quickly since here, her Vitals and side-effects be be monitored by professionals. Whereas if she were an outpatient such titrations could take months, leaving her in constant state of hopelessness and with intrusive SI. -pt has had dissociative episode in the past, but since combined with continued intrusive thoughts about suicide, patient is to remain on unit for her safety, continued stabilization and medication management - 04/12/21: patient is on day 2 of insomnia which is very likely making her OCD/anxiety symptoms worse. Will add clonazepam to give symptom relief (patient and parents fully educated in risks of clonazepam and agreed to trial). - Patient remains emotionally dependent on family; while it is imperative she learn skills to self regulate, this is a long-term goal and for now, service writer advisor will allow parents continued extended visiting times; to reduce parents access at this time will only exacerbate patient's anxiety and at this time be counter- productive Plan: Patient on CV Q 15 minutes checks ADDING Clonazepam 0.5mg BID to give patient some relief from anxiety and help her sleep. Will advance to prn clomipramine 25 mg BID at 9 and 3pm Continue clomipramine to 50mg at HS increase trazodone to 100mg since insomnia dc Seroquel 50mg since not effective DC'd mirtazapine Continue will keep Lexapro at 10 mg due to risk of serotonin syndrome (and dis continuation syndrome) continue gabapentin 300 mg t.i.d. p.r.n. for anxiety as there is a desire to find alternative to benzos given patient's ETOH abuse history (binge drank weekends to get herself to sleep)- may need to reduce dosage if too sedating Greater than 50% of the session was spent on counseling and/or coordination of care Reason for contiued inpatient stay Substantial Risk for: med/psych decompensation
[2021-04-12] MEDS: Gabapentin 300 MG CAPSULE PO (10:43)
[2021-04-12 12:16] VITALS: BP 128/85; PULSE 114; TEMP 36.2
[2021-04-12] MEDS: clonazePAM 0.5 MG TABLET PO ×2 (12:36→21:44)
[2021-04-12 16:50] VITALS: BP 108/71; PULSE 110; TEMP 36.4
[2021-04-12] MEDS: clomiPRAMINE HCl 25 MG CAPSULE 50 MG PO (20:45)
[2021-04-12] MEDS: traZODone HCL 100 MG TABLET PO (21:44)
[2021-04-13 06:44] VITALS: BP 91/53; PULSE 100; RESP 16; O2SAT 97
[2021-04-13] MEDS: Escitalopram Oxalate 10 MG TABLET PO (08:49)
[2021-04-13] MEDS: clomiPRAMINE HCl 25 MG CAPSULE PO ×2 (08:49→14:54)
[2021-04-13] MEDS: clonazePAM 0.5 MG TABLET PO ×2 (08:49→20:52)
[2021-04-13 17:11] VITALS: BP 115/60; PULSE 98; RESP 18; TEMP 36.4; O2SAT 94
--- NOTE | 2021-04-13 19:30 | HO.PSYCHPN ---
Subjective Subjective Date of Service: 04/13/21 Reason For Visit: OCD Anxiety Disorder Interim History: Patient seen, chart reviewed, case discussed with nursing staff Spoke with patient and parents. Patient reports that she slept well last night and feels much more rested. She feels calm today, and did so last night after getting clonazepam. She said she continues to have intrusive thoughts but so far today they are easily redirected and that her mood is overall good. She denies any thoughts about suicide and that she's in a ?better headspace? today and able to read and write in her journal as a means to cope with seemingly less stress and anxiety. She agrees to continue with medication plan for now Mental Status Exam Mental Status Exam Narrative: Pt is alert and oriented; behavior is cooperative, calm; dressed in casual attire with adequate hygiene; mood is described as good and affect congruent; eye contact appropriate; Speech is normal rate, volume and prosody and not pressured; no psychomotor agitation/retardation present; thought process is organized, linear, logical and goal directed. Thought content is on today being a good day but worried it won't last; no delusional content, paranoid ideations or grandiosity; denies any active SI/HI. There is no evidence of perceptual disturbance. Patients insight and judgment appear intact. Diagnostics Vital Signs (24Hr): Vital Signs - 24 hr 04/13/21 06:44 04/13/21 17:11 Temperature 97.5 F Pulse Rate 100 98 Respiratory Rate 16 18 Blood Pressure 91/53 L 115/60 Pulse Oximetry 97 94 Body Mass Index 24.3 Labs Results: 04/06/21 10:54 04/06/21 10:54 Medications Medications Current Medications Generic Name Dose Route Start Last Admin Trade Name Freq PRN Reason Stop Dose Admin Acetaminophen 650 mg 04/02/21 19:31 Acetaminophen 325 Mg Tablet PO Q6H PRN Headache/Pain Mild Scale (1-3) Al Hydroxide/Mg Hydroxide 30 ml 04/02/21 19:31 Magnesium Hydrox/Alum Hydrox 30 Ml Oral.Susp PO Q6H PRN Heartburn/Nausea Clomipramine HCl 50 mg 04/06/21 21:00 04/12/21 20:45 Clomipramine Hcl 25 Mg Capsule PO 50 mg BEDTIME CONTRERAS Administration Clomipramine HCl 25 mg 04/11/21 15:00 04/13/21 14:54 Clomipramine Hcl 25 Mg Capsule PO 25 mg BID@0900,1500 CONTRERAS Administration Clonazepam 0.5 mg 04/12/21 11:55 04/13/21 08:49 Clonazepam 0.5 Mg Tablet PO 0.5 mg BID CONTRERAS Administration Escitalopram Oxalate 10 mg 04/07/21 09:00 04/13/21 08:49 Escitalopram Oxalate 10 Mg Tablet PO 10 mg DAILY CONTRERAS Administration Gabapentin 300 mg 04/03/21 15:18 04/12/21 10:43 Gabapentin 300 Mg Capsule PO 300 mg TID PRN Administration anxiety Ketoconazole 1 appl 04/04/21 21:00 04/11/21 09:45 Ketoconazole 2 % Shampoo 120 Ml Btl TOPICAL 1 appl MoTh@2100 CONTRERAS Administration Protocol Magnesium Hydroxide 30 ml 04/02/21 19:31 Milk Of Magnesia 30 Ml Oral.Susp PO DAILY PRN Constipation Non-Form Med ( 1 tab 04/03/21 09:00 04/13/21 08:48 Junelle Fe 1 Tab) PO 1 tab DAILY CONTRERAS Administration Trazodone HCl 100 mg 04/12/21 21:00 04/12/21 21:44 Trazodone Hcl 100 Mg Tablet PO 100 mg BEDTIME CONTRERAS Administration Allergies Allergies Allergy/AdvReac Type Severity Reaction Status Date / Time No Known Allergies Allergy Verified 04/02/21 15:23 Assessment & Plan Assessment & Plan (1) OCD (obsessive compulsive disorder): Qualifiers: Qualified Code(s): F42.9 - Obsessive-compulsive disorder, unspecified Status: Chronic Code(s): F42.9 - Obsessive-compulsive disorder, unspecified Assessment and Plan: IMPRESSION: Patient is a 25-year-old female, college graduate with history of OCD and alcohol abuse (in sustained remission) who presents for worsening OCD symptoms of intrusive thoughts about suicide and having now become suicidal. Patient has suicidal thoughts remain intrusive however she denies any desire to harm herself and wants treatment Patient has OCD is chronic and goes through periods of exacerbation; she seems to have done best when also engaged in CBT therapy which she would like to get back into. Lexapro seems to have partially worked to varying degrees; clomipramine was just started. Is unlikely that Lexapro dose, when raised to 40 mg caused increased anxiety is this coincided with patient being isolated due to COVID; also SI started before clomipramine was added as a medication; that said she is on 3 agents that increase serotonin and could have a touch of serotonin syndrome. thoroughly discussed treatment options including increasing the doses of meds she is on or trying new meds. Patient would like to see if clomipramine could be effective at higher doses; she agrees to lower mirtazapine to 7.5 mg while titrating clomipramine; 04/08/21 assessment: Differential- symptoms due to either serotonin syndrome vs adverse reaction to medications Vs Panic attack. Seems more likey event was due to panic as she's had similar presentations during past panic attacks and symptoms resolved on their own after a few hours and remained so, w/out any medication changes (meds were changed going forward, but she had already taken her Lexapro). At any rate, will leave SS as differential and be mindful of risk going forward discussed case with dr. Rapp who agrees with med regimen. Will leave lexapro at 10mg, fully dc mirtazapine and slowly titrate clomipramine Reasoning Pt reports ongoing hopeless feelings about ever getting better and intermittent thoughts about suicide. On the one hand, she is not much better than on admission and SI is bothersome and concerning. On the other hand, both she and her parents think her risk of self harm is low as she is always around either her parents or boyfriend, is very vocal about her struggles and has a solid history of reaching out for help. Her boyfriend reports that with some exceptions, for the past several months she typically has only 1-2 good days a week and the rest are riddled with anxiety, hopeless feelings and SI, thus making her current presentation very similar to her typical outpt presentation. While web content writer thinks that she is likely low risk (pt does not want to self harm, would very likely reach out for help if unsafe and return to the hospital), her ongoing intrusive thoughts about SI have remained which is why she came to inpatient; and though she's proven herself resilient and tolerated these thoughts in the past, there is a limit to her endurance . A barrier to discharge is that thus far a pathway out of these overwhelming symptoms has not been determined. Her meds are still being titrated and it's not clear if clomipramine will prove effective. Only on an inpatient unit can this and other meds be titrated quickly since here, her Vitals and side-effects be be monitored by professionals. Whereas if she were an outpatient such titrations could take months, leaving her in constant state of hopelessness and with intrusive SI. -pt has had dissociative episode in the past, but since combined with continued intrusive thoughts about suicide, patient is to remain on unit for her safety, continued stabilization and medication management - 04/12/21: patient is on day 2 of insomnia which is very likely making her OCD/anxiety symptoms worse. Will add clonazepam to give symptom relief (patient and parents fully educated in risks of clonazepam and agreed to trial). - Patient remains emotionally dependent on family; while it is imperative she learn skills to self regulate, this is a long-term goal and for now, web content writer will allow parents continued extended visiting times; to reduce parents access at this time will only exacerbate patient's anxiety and at this time be counter-productive 04/13 having a good day; no instrusive SI thoughts, slept well Plan: Patient on CV Q 15 minutes checks ADDING Clonazepam 0.5mg BID to give patient some relief from anxiety and help her sleep. Will advance to prn clomipramine 25 mg BID at 9 and 3pm Continue clomipramine to 50mg at HS increase trazodone to 100mg since insomnia dc Seroquel 50mg since not effective DC'd mirtazapine Continue will keep Lexapro at 10 mg due to risk of serotonin syndrome (and discontinuation syndrome) continue gabapentin 300 mg t.i.d. p.r.n. for anxiety as there is a desire to find alternative to benzos given patient's ETOH abuse history (binge drank weekends to get herself to sleep)- may need to reduce dosage if too sedating Greater than 50% of the session was spent on counseling and/or coordination of care Reason for contiued inpatient stay Substantial Risk for: med/psych decompensation
[2021-04-13] MEDS: clomiPRAMINE HCl 25 MG CAPSULE 50 MG PO (20:53)
[2021-04-13] MEDS: traZODone HCL 100 MG TABLET PO (22:12)
[2021-04-14 06:37] VITALS: BP 111/55; PULSE 88; RESP 18; TEMP 36.8; O2SAT 95
[2021-04-14] MEDS: clonazePAM 0.5 MG TABLET PO ×2 (08:29→20:39)
[2021-04-14] MEDS: Escitalopram Oxalate 10 MG TABLET PO (08:29)
[2021-04-14] MEDS: clomiPRAMINE HCl 25 MG CAPSULE PO ×2 (08:29→15:10)
--- NOTE | 2021-04-14 18:11 | P.PNPSI_ITS ---
Subjective Subjective Date of Service: 04/14/21 Reason For Visit: OCD Anxiety Disorder Interim History: pt reports good sleep last night; she says she is feeling better overall and seems to have a new outlook, explaining that she feels it maybe possible to learn to accept her thoughts as just thoughts rather than always be overwhelmed by them. She says intrusive thoughts are less intense and she's been able to distract herself. She denies any SI or intrusive SI thoughts. Pt feels she's tolerating the clomipramine well. She says she feels a little sedated in AM after clonazepam and pt agreed to change AM dose to a prn. Mental Status Exam Mental Status Exam Narrative: Pt is alert and oriented; behavior is cooperative, calm; dressed in casual attire with adequate hygiene; mood is described as better and affect congruent; eye contact appropriate; Speech is normal rate, volume and prosody and not pressured; no psychomotor agitation/retardation present; thought process is organized, linear, logical and goal directed. Thought content is on learning to tolerate intrusive thoughts; no delusional content, paranoid ideations or grandiosity; denies any SI/HI. There is no evidence of perceptual disturbance. Patients insight and judgment appear intact. Diagnostics Vital Signs (24Hr): Vital Signs - 24 hr 04/14/21 06:37 Temperature 98.2 F Pulse Rate 88 Respiratory Rate 18 Blood Pressure 111/55 L Pulse Oximetry 95 Body Mass Index 24.3 Labs Results: 04/06/21 10:54 04/06/21 10:54 Medications Medications Current Medications Generic Name Dose Route Start Last Admin Trade Name Galdinoq PRN Reason Stop Dose Admin Acetaminophen 650 mg 04/02/21 19:31 Acetaminophen 325 Mg Tablet PO Q6H PRN Headache/Pain Mild Scale (1-3) Al Hydroxide/Mg Hydroxide 30 ml 04/02/21 19:31 Magnesium Hydrox/Alum Hydrox 30 Ml Oral.Susp PO Q6H PRN Heartburn/Nausea Clomipramine HCl 50 mg 04/06/21 21:00 04/13/21 20:53 Clomipramine Hcl 25 Mg Capsule PO 50 mg BEDTIME CONTRERAS Administration Clomipramine HCl 25 mg 04/11/21 15:00 04/14/21 15:10 Clomipramine Hcl 25 Mg Capsule PO 25 mg BID@0900,1500 CONTRERAS Administration Clonazepam 0.5 mg 04/14/21 21:00 Clonazepam 0.5 Mg Tablet PO BEDTIME CONTRERAS Clonazepam 0.25 mg 04/15/21 07:00 Clonazepam 0.5 Mg Tablet PO BID PRN moderate to severe anxiety Escitalopram Oxalate 10 mg 04/07/21 09:00 04/14/21 08:29 Escitalopram Oxalate 10 Mg Tablet PO 10 mg DAILY CONTRERAS Administration Gabapentin 300 mg 04/03/21 15:18 04/12/21 10:43 Gabapentin 300 Mg Capsule PO 300 mg TID PRN Administration anxiety Ketoconazole 1 appl 04/04/21 21:00 04/11/21 09:45 Ketoconazole 2 % Shampoo 120 Ml Btl TOPICAL 1 appl MoTh@2100 CONTRERAS Administration Protocol Magnesium Hydroxide 30 ml 04/02/21 19:31 Milk Of Magnesia 30 Ml Oral.Susp PO DAILY PRN Constipation Non-Form Med ( 1 tab 04/03/21 09:00 04/14/21 08:45 Junelle Fe 1 Tab) PO 1 tab DAILY CONTRERAS Administration Trazodone HCl 100 mg 04/12/21 21:00 04/13/21 22:12 Trazodone Hcl 100 Mg Tablet PO 100 mg BEDTIME CONTRERAS Administration Allergies Allergies Allergy/AdvReac Type Severity Reaction Status Date / Time No Known Allergies Allergy Verified 04/02/21 15:23 Assessment & Plan Assessment & Plan (1) OCD (obsessive compulsive disorder): Qualifiers: Qualified Code(s): F42.9 - Obsessive-compulsive disorder, unspecified Status: Chronic Code(s): F42.9 - Obsessive-compulsive disorder, unspecified Assessment and Plan: IMPRESSION: Patient is a 25-year-old female, college graduate with history of OCD and alcohol abuse (in sustained remission) who presents for worsening OCD symptoms of intrusive thoughts about suicide and having now become suicidal. Patient has suicidal thoughts remain intrusive however she denies any desire to harm herself and wants treatment Patient has OCD is chronic and goes through periods of exacerbation; she seems to have done best when also engaged in CBT therapy which she would like to get back into. Lexapro seems to have partially worked to varying degrees; clomipramine was just started. Is unlikely that Lexapro dose, when raised to 40 mg caused increased anxiety is this coincided with patient being isolated due to COVID; also SI started before clomipramine was added as a medication; that said she is on 3 agents that increase serotonin and could have a touch of serotonin syndrome. thoroughly discussed treatment options including increasing the doses of meds she is on or trying new meds. Patient would like to see if clomipramine could be effective at higher doses; she agrees to lower mirtazapine to 7.5 mg while titrating clomipramine; 04/08/21 assessment: Differential- symptoms due to either serotonin syndrome vs adverse reaction to medications Vs Panic attack. Seems more likey event was due to panic as she's had similar presentations during past panic attacks and symptoms resolved on their own after a few hours and remained so, w/out any medication changes (meds were changed going forward, but she had already taken her Lexapro). At any rate, will leave SS as differential and be mindful of risk going forward discussed case with dr. Rapp who agrees with med regimen. Will leave lexapro at 10mg, fully dc mirtazapine and slowly titrate clomipramine Reasoning Pt reports ongoing hopeless feelings about ever getting better and intermittent thoughts about suicide. On the one hand, she is not much better than on admission and SI is bothersome and concerning. On the other hand, both she and her parents think her risk of self harm is low as she is always around either her parents or boyfriend, is very vocal about her struggles and has a solid history of reaching out for help. Her boyfriend reports that with some exceptions, for the past several months she typically has only 1-2 good days a week and the rest are riddled with anxiety, hopeless feelings and SI, thus making her current presentation very similar to her typical outpt presentation. While investment underwriter thinks that she is likely low risk (pt does not want to self harm, would very likely reach out for help if unsafe and return to the hospital), her ongoing intrusive thoughts about SI have remained which is why she came to inpatient; and though she's proven herself resilient and tolerated these thoughts in the past, there is a limit to her endurance . A barrier to discharge is that thus far a pathway out of these overwhelming symptoms has not been determined. Her meds are still being titrated and it's not clear if clomipramine will prove effective. Only on an inpatient unit can this and other meds be titrated quickly since here, her Vitals and side-effects be be monitored by professionals. Whereas if she were an outpatient such titrations could take months, leaving her in constant state of hopelessness and with intrusive SI. -pt has had dissociative episode in the past, but since combined with continued intrusive thoughts about suicide, patient is to remain on unit for her safety, continued stabilization and medication management - 04/12/21: patient is on day 2 of insomnia which is very likely making her OCD/anxiety symptoms worse. Will add clonazepam to give symptom relief (patient and parents fully educated in risks of clonazepam and agreed to trial). - Patient remains emotionally dependent on family; while it is imperative she learn skills to self regulate, this is a long-term goal and for now, investment underwriter will allow parents continued extended visiting times; to reduce parents access at this time will only exacerbate patient's anxiety and at this time be counter- productive 04/13-04/04 having a good day; no instrusive SI thoughts, slept well Plan: Patient on CV Q 15 minutes checks ADDING Clonazepam 0.5mg BID to give patient some relief from anxiety and help her sleep. Will advance to prn clomipramine 25 mg BID at 9 and 3pm Continue clomipramine to 50mg at HS increase trazodone to 100mg since insomnia dc Seroquel 50mg since not effective DC'd mirtazapine Continue will keep Lexapro at 10 mg due to risk of serotonin syndrome (and discontinuation syndrome) continue gabapentin 300 mg t.i.d. p.r.n. for anxiety as there is a desire to find alternative to benzos given patient's ETOH abuse history (binge drank weekends to get herself to sleep)- may need to reduce dosage if too sedating Greater than 50% of the session was spent on counseling and/or coordination of care Reason for contiued inpatient stay Substantial Risk for: rapid decompensation
[2021-04-14 19:10] VITALS: BP 127/71; PULSE 93; TEMP 36.6
[2021-04-14] MEDS: clomiPRAMINE HCl 25 MG CAPSULE 50 MG PO (20:39)
[2021-04-14] MEDS: traZODone HCL 100 MG TABLET PO (22:29)
[2021-04-15 06:44] VITALS: BP 90/51; PULSE 83; RESP 16; TEMP 36.1; O2SAT 96
[2021-04-15] MEDS: clomiPRAMINE HCl 25 MG CAPSULE PO ×2 (08:36→14:50)
[2021-04-15] MEDS: Escitalopram Oxalate 10 MG TABLET PO (08:37)
--- NOTE | 2021-04-15 09:43 | P.PNPSI_ITS ---
Subjective Subjective Date of Service: 04/15/21 Reason For Visit: OCD Anxiety Disorder Interim History: Look Out Tower Fire Watcher met with patient and her parents as well as director social service Tyesha. Patient continues to feel in a good mood, denies any SI, is sleeping well and feels that she is able to manage her obsessive thoughts. She says she would like to go home, where she will be living with her parents and feels safe and stable to do so. Her parents who more both very supportive, agree that patient is safe for discharge and welcome her home. The chronic nature of this illness was discussed and all except that the future will hold both ups and Downs; however patient feels she is ready to manage this is an outpatient. Patient will be going to IOP starting next week which and so she will continue to be in a structured environment as she pursues treatment. Patient shares that she is worried that if she has a tough morning whether that will that interfere with her going home. Look Out Tower Fire Watcher, parents, patient and director social service agree that she has had tough times in the past and will very likely have tough times in the future and that having 1 tomorrow morning does not necessarily need to be a barrier to discharge. Instead pt, parents and team will focus on patient's safety and if she is able to be safe, is not having suicidal ideations, then discharge home can remain the plan. Mental Status Exam Mental Status Exam Narrative: Pt is alert and oriented; behavior is cooperative, calm; dressed in casual attire with adequate hygiene; mood is described as good and affect congruent; eye contact appropriate; Speech is normal rate, volume and prosody and not pressured; no psychomotor agitation/retardation present; thought process is organized, linear, logical and goal directed. Thought content on discharge, using coping skills and organizing on outpt treatment plan; no delusional content, paranoid ideations or grandiosity; denies any SI/HI. There is no evidence of perceptual disturbance. Patients insight and judgment appear intact. Diagnostics Vital Signs (24Hr): Vital Signs - 24 hr 04/14/21 19:10 04/15/21 06:44 Temperature 97.8 F 96.9 F Pulse Rate 93 83 Respiratory Rate 16 Blood Pressure 127/71 90/51 L Pulse Oximetry 96 Body Mass Index 24.3 Labs Results: 04/06/21 10:54 04/06/21 10:54 Medications Medications Current Medications Generic Name Dose Route Start Last Admin Trade Name Freq PRN Reason Stop Dose Admin Acetaminophen 650 mg 04/02/21 19:31 Acetaminophen 325 Mg Tablet PO Q6H PRN Headache/Pain Mild Scale (1-3) Al Hydroxide/Mg Hydroxide 30 ml 04/02/21 19:31 Magnesium Hydrox/Alum Hydrox 30 Ml Oral.Susp PO Q6H PRN Heartburn/Nausea Clomipramine HCl 50 mg 04/06/21 21:00 04/14/21 20:39 Clomipramine Hcl 25 Mg Capsule PO 50 mg BEDTIME CONTRERAS Administration Clomipramine HCl 25 mg 04/11/21 15:00 04/15/21 08:36 Clomipramine Hcl 25 Mg Capsule PO 25 mg BID@0900,1500 CONTRERAS Administration Clonazepam 0.5 mg 04/14/21 21:00 04/14/21 20:39 Clonazepam 0.5 Mg Tablet PO 0.5 mg BEDTIME CONTRERAS Administration Clonazepam 0.25 mg 04/15/21 07:00 Clonazepam 0.5 Mg Tablet PO BID PRN moderate to severe anxiety Escitalopram Oxalate 10 mg 04/07/21 09:00 04/15/21 08:37 Escitalopram Oxalate 10 Mg Tablet PO 10 mg DAILY CONTRERAS Administration Gabapentin 300 mg 04/03/21 15:18 04/12/21 10:43 Gabapentin 300 Mg Capsule PO 300 mg TID PRN Administration anxiety Ketoconazole 1 appl 04/04/21 21:00 04/11/21 09:45 Ketoconazole 2 % Shampoo 120 Ml Btl TOPICAL 1 appl MoTh@2100 CONTRERAS Administration Protocol Magnesium Hydroxide 30 ml 04/02/21 19:31 Milk Of Magnesia 30 Ml Oral.Susp PO DAILY PRN Constipation Non-Form Med ( 1 tab 04/03/21 09:00 04/15/21 08:39 Junelle Fe 1 Tab) PO 1 tab DAILY CONTRERAS Administration Trazodone HCl 100 mg 04/12/21 21:00 04/14/21 22:29 Trazodone Hcl 100 Mg Tablet PO 100 mg BEDTIME CONTRERAS Administration Allergies Allergies Allergy/AdvReac Type Severity Reaction Status Date / Time No Known Allergies Allergy Verified 04/02/21 15:23 Assessment & Plan Assessment & Plan (1) OCD (obsessive compulsive disorder): Qualifiers: Qualified Code(s): F42.9 - Obsessive-compulsive disorder, unspecified Status: Chronic Code(s): F42.9 - Obsessive-compulsive disorder, unspecified Assessment and Plan: IMPRESSION: Patient is a 25-year-old female, college graduate with history of OCD and alcohol abuse (in sustained remission) who presents for worsening OCD symptoms of intrusive thoughts about suicide and having now become suicidal. Patient has suicidal thoughts remain intrusive however she denies any desire to harm herself and wants treatment Patient has OCD is chronic and goes through periods of exacerbation; she seems to have done best when also engaged in CBT therapy which she would like to get back into. Lexapro seems to have partially worked to varying degrees; clomipramine was just started. Is unlikely that Lexapro dose, when raised to 40 mg caused increased anxiety is this coincided with patient being isolated due to COVID; also SI started before clomipramine was added as a medication; that said she is on 3 agents that increase serotonin and could have a touch of serotonin syndrome. thoroughly discussed treatment options including increasing the doses of meds she is on or trying new meds. Patient would like to see if clomipramine could be effective at higher doses; she agrees to lower mirtazapine to 7.5 mg while t itrating clomipramine; 04/08/21 assessment: Differential- symptoms due to either serotonin syndrome vs adverse reaction to medications Vs Panic attack. Seems more likey event was due to panic as she's had similar presentations during past panic attacks and symptoms resolved on their own after a few hours and remained so, w/out any medication changes (meds were changed going forward, but she had already taken her Lexapro). At any rate, will leave SS as differential and be mindful of risk going forward discussed case with dr. Rapp who agrees with med regimen. Will leave lexapro at 10mg, fully dc mirtazapine and slowly titrate clomipramine Reasoning early on: Pt reports ongoing hopeless feelings about ever getting better and intermittent thoughts about suicide. On the one hand, she is not much better than on admission and SI is bothersome and concerning. On the other hand, both she and her parents think her risk of self harm is low as she is always around either her parents or boyfriend, is very vocal about her struggles and has a solid history of reaching out for help. Her boyfriend reports that with some exceptions, for the past several months she typically has only 1-2 good days a week and the rest are riddled with anxiety, hopeless feelings and SI, thus making her current presentation very similar to her typical outpt presentation. While engineering technical writer thinks that she is likely low risk (pt does not want to self harm, would very likely reach out for help if unsafe and return to the hospital), her ongoing intrusive thoughts about SI have remained which is why she came to i npatient; and though she's proven herself resilient and tolerated these thoughts in the past, there is a limit to her endurance . A barrier to discharge is that thus far a pathway out of these overwhelming symptoms has not been determined. Her meds are still being titrated and it's not clear if clomipramine will prove effective. Only on an inpatient unit can this and other meds be titrated quickly since here, her Vitals and side-effects be be monitored by professionals. Whereas if she were an outpatient such titrations could take months, leaving her in constant state of hopelessness and with intrusive SI. hx of dissociative episodes 04/12/21: dissociative episode on unit; patient is on day 2 of insomnia which is very likely making her OCD/anxiety symptoms worse. Will add clonazepam to give symptom relief (patient and parents fully educated in risks of clonazepam and agreed to trial). -dissociative episode resolved with grounding techniques; pt was able to sleep once given clonazepam - Patient remains emotionally dependent on family; while it is imperative she learn skills to self regulate, this is a long-term goal and for now, engineering technical writer will allow parents continued extended visiting times; to reduce parents access at this time will only exacerbate patient's anxiety and at this time be counter- productive -from 04/13/21, Patient has remained in good mood, sleeping well and without any SI; she continues to report having better control over her intrusive thoughts, able to redirect them and stay stable. Patient feels she is tolerating medications well and that she is ready to discharge home where she'll be living with her parents and sometimes her boyfriend, all of whom are supportive and have been involved in patient's treatment. Look Out Tower Fire Watcher discussed this with patient and her parents. It was discussed and is well understood by all that even though patient has been doing well, she will at some point, very likely, again intermittently struggle with tough days, suicidal ideation and bouts of hopeless feelings. Both patient and parents agree that her problems are l d rn angie, that the future will hold both ups and downs and that treatment goals are long-term. However, patient feels she is safe and can stay safe while continuing to pursue treatment as an outpatient. Patient has a long history of being willing and able to reach out for help when she needs it and she will remain surrounded by her supportive family; she understands and accepts that it's possible at some point, she may need to come to the hospital and agrees to reach out for help if feeling unsafe. At this time, Cris has likely reached the maximal benefit from this inpatient admission and further treatments are appropriate for the outpatient setting. Her medications have been adjusted to go od effect and she's tolerating them well; medication management now consists of her continuing on current regimen and assessing over time whether to make any adjustments, something which can be done by her outpt providers which are already established. She is not in imminent risk of harm to self or others and does not meet criteria for involuntary commitment. Her request for discharge is honored. Plan: DC on 04/15/21 Patient on CV Q 15 minutes checks Clonazepam 0.5mg BID to give patient some relief from anxiety and help her sleep. Will advance to prn clomipramine 25 mg BID PRN at 9 and 3pm Continue clomipramine to 50mg at HS increase trazodone to 100mg since insomnia dc Seroquel 50mg since not effective DC'd mirtazapine Continue will keep Lexapro at 10 mg due to risk of serotonin syndrome (and discontinuation syndrome) continue gabapentin 300 mg t.i.d. p.r.n. for anxiety as there is a desire to find alternative to benzos given patient's ETOH abuse history (binge drank weekends to get herself to sleep)- may need to reduce dosage if too sedating Greater than 50% of the session was spent on counseling and/or coordination of care Reason for contiued inpatient stay Substantial Risk for: stable for discharge
--- NOTE | 2021-04-15 14:17 | PM.PSYDC ---
DS: Providers Provider Date of Service: 04/15/21 Date of admission: 04/02/21 14:49 Date of discharge: 04/16/21 Primary care physician: Lakesha Henderson MD Attending physician on admission: Carlin Medley Consults: 04/02/21 19:31 Consult to Hospitalist Routine Consulting Provider: Hospitalist Reason For Exam: direct admission from [facility] 04/03/21 09:54 Consult to Hospitalist Routine Consulting Provider: Hospitalist Reason For Exam: Admission Physical Discharging clinician: Carlin Medley DS: Diagnosis Discharge Diagnosis (1) OCD (obsessive compulsive disorder): Status: Chronic (2) KAYLA (generalized anxiety disorder): Status: Chronic (3) MDD (major depressive disorder), recurrent episode: Status: Chronic DS: Medications Discharge Medications Home Medications: Previous Rx's Medication Instructions Recorded clomipramine 50 mg PO BID 30 Days #120 cap 04/15/21 clonazepam 0.25 mg PO QID 30 Days #60 tab 04/15/21 escitalopram oxalate 10 mg PO DAILY 30 Days #30 tab 04/15/21 trazodone 100 mg PO BEDTIME 30 Days #30 tab 04/15/21 Discharge Plan Discharge Patient Disposition: Home, Self-Care Discharge Diagnosis: OCD, with obsessions and good insight Referrals: Psych Prescriber: Taty Fontaine ([facility]) [Other] - 04/16/21 3:30 pm (Telehealth ) Therapist: Ansley Talley ([facility]) [Other] - 04/18/21 4:00 pm (Video Telehealth ) Lakesha Henderson MD [Primary Care Provider] - (DR. MALCOLM WILL CALL YOU AT HOME WITH APPOINTMENT.) Discharge Medications: New clomipramine 25 mg Capsule 50 mg PO BID 30 Days Qty: 120 RF: 0 clonazepam 0.5 mg Tablet 0.25 mg PO QID 30 Days Qty: 60 RF: 0 escitalopram oxalate 10 mg Tablet 10 mg PO DAILY 30 Days Qty: 30 RF: 0 trazodone 100 mg Tablet 100 mg PO BEDTIME 30 Days Qty: 30 RF: 0 Junelle Fe 1 tab PO DAILY Qty: 0 RF: 0 Discharge Orders: Discharge Order (Routine); Ordered 04/16/21 Ordered By: Kaleigh Antunez Diet: regular diet Activity on Discharge: As tolerated Stand Alone Forms: Patient Portal Discharge page, Community Support Care Plan Goals: Maintain mood and safe behaviors Take medications as prescribed Practice coping skills Continue with outpatient providers and reach out to them as needed Health Concerns: Mood instability and behaviors Plan of Treatment: Follow up with your outpatient providers regarding above concerns Take medications as prescribed Assessment: Patient has been observed closely by nursing and unit staff throughout admission; patient has not engaged in any behaviors that suggest dangerousness to self or others and has demonstrated appropriate behaviors and impulse control. Patient was interviewed prior to discharge and found to be fully oriented and without any SI or HI. Patient has insight and demonstrates good judgment in terms of wanting to pursue treatment. Patient is not in imminent risk of harm to self or others and has a safety plan that includes presenting to the closest ER or calling 911 if feeling unsafe. Discharge Date/Time: 04/16/21 12:35 Mental Status Exam Mental Status Exam Narrative: Patient Appearance: Appropriate Patient Orientation: Person, Place, Time and Situation Level of Consciousness: Alert Patient Behavior: Appropriate, Cooperative and Good Eye Contact Mood Description: Appropriate Affect Description: Appropriate and Constricted Patient Cognition Impaired: No Ability to Follow Directions: Good Speech Pattern: Spontaneous Speech Memory Description: Intact Hallucinations: None Delusions: Not Present Thought Process: Intact Thought Content: positive for Intact Depressive Symptoms: Increased Anxiety Judgement: Good DS: Summary Hospital Course Hospital Course: Patient is a 25-year-old female, college graduate with history of OCD and alcohol abuse (in sustained remission) who presents for worsening OCD symptoms of intrusive thoughts about suicide and having become suicidal. On admission, pt signed CV. She was depressed with suicidal thoughts that were intrusive however she denied any desire to harm herself and wants treatment. At 1st patient remained on her outpatient regimen of Lexapro 30 mg and clomipramine 50 mg. Mirtazapine was tapered down and discontinued and her clomipramine was increased to 75 mg and then 100 mg. At 1st she seemed to tolerate this regimen but after few days felt nauseous and had what was either a panic attack or serotonin syndrome (symptoms were similar to past panic attacks and resolved on their without any change in medications) and clomipramine was lowered back to 50 and Lexapro lowered to 10 mg. Patient continued to have some good days where thoughts were able to be redirected and not so intrusive, and some very troublesome days where she felt she could not stop thinking about suicide. Clomipramine was slowly titrated back to 100 mg which she tolerated. Patient talked about discharge home nearly every day, however recognized her need to be on the inpatient unit to get some resolution of symptoms and a plan for going forward. Also of note, patient's parents and boyfriend visited every day and were supportive; it was discussed that patient has a tendency to be over reliant on these relationships however patient and parents both agree that this is a problem and are working on. Patient had trouble sleeping due to anxiety and the insomnia combined with intrusive OCD thoughts seem to trigger a dissociative episode. Boat Finisher started her on clonazepam, at 1st scheduled, to give her some immediate relief from symptoms. Patient was able to sleep and going forward started feeling much better. Over the next several days, patient's mood remained in good spirits, with brighter affect and intrusive thoughts under control; OCD thoughts about and suicidal ideation fully resolved and did not return. Patient continued to deny any suicidal or homicidal ideation during admission and demonstrated appropriate behaviors and impulse control on the unit. Patient felt ready to go home and residential mortgage underwriter agreed that at this time, as is tolerating meds well, in a good mood and feeling stable, that further treatments were appropriate for the outpatient setting. By the time of discharge, patient was in good mood, sleeping well and without any SI; she continued to report having better control over her intrusive thoughts, able to redirect them and stay stable. Patient was tolerating medications well and felt ready to discharge home where she'll be living with her parents and sometimes her boyfriend, all of whom are supportive and have been involved in patient's treatment. Boat Finisher discussed this with parents and patient who both understood and agreed that even though patient has been doing well, she will at some point, likely intermittently struggle with tough days, suicidal ideation and bouts of hopeless feelings. Both patient and parents agree that her problems are chronic, that the future will hold both ups and downs and that treatment goals are long-term. However, patient feels she is safe and can stay safe while continuing to pursue treatment as an outpatient. Patient has a long history of being both willing and able to reach out for help when she needs it and she will remain surrounded by her supportive family; she understands and accepts that it's possible at some point, she may need to come to the hospital and agrees to reach out for help if feeling unsafe. Going forward medication management consists of her continuing on current regimen and assessing over time whether to make any adjustments, something which can be done by her outpt providers which are already established. She is not in imminent risk of harm to self or others and does not meet criteria for involuntary commitment. Her request for discharge is honored. Time Spent with Patient Time attestation: Total time spent providing and/or coordinating discharge services:
[2021-04-15 19:25] VITALS: BP 116/64; PULSE 108; TEMP 36.8
[2021-04-15] MEDS: clonazePAM 0.5 MG TABLET PO (20:57)
[2021-04-15] MEDS: clomiPRAMINE HCl 25 MG CAPSULE 50 MG PO (20:57)
[2021-04-15] MEDS: traZODone HCL 100 MG TABLET PO (22:12)
[2021-04-16 06:00] VITALS: BP 107/62; PULSE 89; RESP 16; TEMP 36.2; O2SAT 93
[2021-04-16] MEDS: clomiPRAMINE HCl 25 MG CAPSULE PO (08:35)
[2021-04-16] MEDS: Escitalopram Oxalate 10 MG TABLET PO (08:36)
--- NOTE | 2021-04-16 14:28 | HO.PSYCHPN ---
Subjective Subjective Date of Service: 04/16/21 Reason For Visit: OCD Anxiety Disorder Subjective Notes: Conditional Voluntary Healthcare Proxy: No Guardianship: No Medical Problems Affecting Mental Status: No Interim History: Pt reports she is prepared for discharge. She denies questions about medications, is able to contract for her safety and feels her mood is stable. Medication Compliance: Yes Side effects from medications: No Attending Groups: No Review of Systems Psychiatric: Reports anxiety, Reports depression, Reports homicidal ideation (denies) and Reports suicidal ideation (denies) Mental Status Exam Mental Status Exam Patient Appearance: Appropriate Patient Orientation: Person, Place, Time and Situation Level of Consciousness: Alert Patient Behavior: Appropriate, Cooperative and Good Eye Contact Mood Description: Appropriate Affect Description: Appropriate and Constricted Patient Cognition Impaired: No Ability to Follow Directions: Good Speech Pattern: Spontaneous Speech Memory Description: Intact Hallucinations: None Delusions: Not Present Thought Process: Intact Thought Content: positive for Intact Depressive Symptoms: Increased Anxiety Judgement: Good Diagnostics Vital Signs (24Hr): Vital Signs - 24 hr 04/15/21 19:25 04/16/21 06:00 Temperature 98.2 F 97.1 F Pulse Rate 108 H 89 Respiratory Rate 16 Blood Pressure 116/64 107/62 Pulse Oximetry 93 Body Mass Index 24.3 Labs Results: 04/06/21 10:54 04/06/21 10:54 Medications Allergies Allergies Allergy/AdvReac Type Severity Reaction Status Date / Time No Known Allergies Allergy Verified 04/02/21 15:23 Assessment & Plan Assessment & Plan (1) OCD (obsessive compulsive disorder): Qualifiers: Qualified Code(s): F42.9 - Obsessive-compulsive disorder, unspecified Status: Chronic Code(s): F42.9 - Obsessive-compulsive disorder, unspecified Assessment and Plan: IMPRESSION: Patient is a 25-year-old female, college graduate with history of OCD and alcohol abuse (in sustained remission) who presents for worsening OCD symptoms of intrusive thoughts about suicide and having now become suicidal. Patient has suicidal thoughts remain intrusive however she denies any desire to harm herself and wants treatment Patient has OCD is chronic and goes through periods of exacerbation; she seems to have done best when also engaged in CBT therapy which she would like to get back into. Lexapro seems to have partially worked to varying degrees; clomipramine was just started. Is unlikely that Lexapro dose, when raised to 40 mg caused increased anxiety is this coincided with patient being isolated due to COVID; also SI started before clomipramine was added as a medication; that said she is on 3 agents that increase serotonin and could have a touch of serotonin syndrome. thoroughly discussed treatment options including increasing the doses of meds she is on or trying new meds. Patient would like to see if clomipramine could be effective at higher doses; she agrees to lower mirtazapine to 7.5 mg while titrating clomipramine; 04/08/21 assessment: Differential- symptoms due to either serotonin syndrome vs adverse reaction to medications Vs Panic attack. Seems more likey event was due to panic as she's had similar presentations during past panic attacks and symptoms resolved on their own after a few hours and remained so, w/out any medication changes (meds were changed going forward, but she had already taken her Lexapro). At any rate, will leave SS as differential and be mindful of risk going forward discussed case with dr. Rapp who agrees with med regimen. Will leave lexapro at 10mg, fully dc mirtazapine and slowly titrate clomipramine Reasoning early on: Pt reports ongoing hopeless feelings about ever getting better and intermittent thoughts about suicide. On the one hand, she is not much better than on admission and SI is bothersome and concerning. On the other hand, both she and her parents think her risk of self harm is low as she is always around either her parents or boyfriend, is very vocal about her struggles and has a solid history of reaching out for help. Her boyfriend reports that with some exceptions, for the past several months she typically has only 1-2 good days a week and the rest are riddled with anxiety, hopeless feelings and SI, thus making her current presentation very similar to her typical outpt presentation. While fiction and nonfiction writer prose thinks that she is likely low risk (pt does not want to self harm, would very likely reach out for help if unsafe and return to the hospital), her ongoing intrusive thoughts about SI have remained which is why she came to inpatient; and though she's proven herself resilient and tolerated these thoughts in the past, there is a limit to her endurance . A barrier to discharge is that thus far a pathway out of these overwhelming symptoms has not been determined. Her meds are still being titrated and it's not clear if clomipramine will prove effective. Only on an inpatient unit can this and other meds be titrated quickly since here, her Vitals and side-effects be be monitored by professionals. Whereas if she were an outpatient such titrations could take months, leaving her in constant state of hopelessness and with intrusive SI. hx of dissociative episodes 04/12/21: dissociative episode on unit; patient is on day 2 of insomnia which is very likely making her OCD/anxiety symptoms worse. Will add clonazepam to give symptom relief (patient and parents fully educated in risks of clonazepam and agreed to trial). -dissociative episode resolved with grounding techniques; pt was able to sleep once given clonazepam - Patient remains emotionally dependent on family; while it is imperative she learn skills to self regulate, this is a long-term goal and for now, fiction and nonfiction writer prose will allow parents continued extended visiting times; to reduce parents access at this time will only exacerbate patient's anxiety and at this time be counter-productive -from 04/13/21, Patient has remained in good mood, sleeping well and without any SI; she continues to report having better control over her intrusive thoughts, able to redirect them and stay stable. Patient feels she is tolerating medications well and that she is ready to discharge home where she'll be living with her parents and sometimes her boyfriend, all of whom are supportive and have been involved in patient's treatment. Dumpling Machine Operator discussed this with patient and her parents. It was discussed and is well understood by all that even though patient has been doing well, she will at some point, very likely, again intermittently struggle with tough days, suicidal ideation and bouts of hopeless feelings. Both patient and parents agree that her problems are chronic, that the future will hold both ups and downs and that treatment goals are long-term. However, patient feels she is safe and can stay safe while continuing to pursue treatment as an outpatient. Patient has a long history of being willing and able to reach out for help when she needs it and she will remain surrounded by her supportive family; she understands and accepts that it's possible at some point, she may need to come to the hospital and agrees to reach out for help if feeling unsafe. At this time, Cris has likely reached the maximal benefit from this inpatient admission and further treatments are appropriate for the outpatient setting. Her medications have been adjusted to good effect and she's tolerating them well; medication management now consists of her continuing on current regimen and assessing over time whether to make any adjustments, something which can be done by her outpt providers which are already established. She is not in imminent risk of harm to self or others and does not meet criteria for involuntary commitment. Her request for discharge is honored. 04/16/21: Discharge as planned. Pt feeling prepared to move forward. Denies SI, denies med SE or symptoms that would have her reconsider remaining in patient. No psychosis evidenced. Mood is stable. Plan: DC on 04/15/21 Patient on CV Q 15 minutes checks Clonazepam 0.5mg BID to give patient some relief from anxiety and help her sleep. Will advance to prn clomipramine 25 mg BID PRN at 9 and 3pm Continue clomipramine to 50mg at HS increase trazodone to 100mg since insomnia dc Seroquel 50mg since not effective DC'd mirtazapine Continue will keep Lexapro at 10 mg due to risk of serotonin syndrome (and discontinuation syndrome) continue gabapentin 300 mg t.i.d. p.r.n. for anxiety as there is a desire to find alternative to benzos given patient's ETOH abuse history (binge drank weekends to get herself to sleep)- may need to reduce dosage if too sedating Greater than 50% of the session was spent on counseling and/or coordination of care Reason for contiued inpatient stay Substantial Risk for: stable for discharge
== END 2021-04-16 12:35 | disposition home or self-care (01) | DRG 751 ==
PROVIDERS: Clinical Nurse Specialist Psychiatric/Mental Health; Admitting Provider Psychiatry & Neurology Psychiatry; PCP Internal Medicine; Visit Provider Psychiatry & Neurology Psychiatry
DX: F33.9 Major depressive disorder, recurrent, unspecified (principal); R45.851 Suicidal ideations; K50.90 Crohn's disease, unspecified, without complications; F41.1 Generalized anxiety disorder; F42.9 Obsessive-compulsive disorder, unspecified; F10.11 Alcohol abuse, in remission; Z79.899 Other long term (current) drug therapy
CPT/HCPCS: 36415; 80053; 80076; 81025; 84439; 84443; 85025; 93005

== ENCOUNTER 2022-03-14 18:54 | Inpatient (IN) | payer OTHER, SELFPAY ==
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
[2022-03-14] MEDS: clomiPRAMINE HCl 25 MG CAPSULE 150 MG PO (21:25)
[2022-03-14] MEDS: clonazePAM 1 MG TABLET PO (21:25)
--- NOTE | 2022-03-15 00:11 | PC.ADMIT ---
A white female aged 26 years was [facility] as a CV following referral from [facility] and [facility] ED. Pt is known to and was admitted here in April 2021. Pt presented to [facility] ED on 03/13 via ambulance after pt's parents called 911 because daughter was in a dissociative state following a panic attack. Pt has experienced recurrent panic attacks, heightened emotional distress, SI w/o a plan and psychomotor decompensation. Pt woke on 03/13 with increased lethargy, with difficulty getting out of bed. Pt drove to work but reported experiencing a panic attack and needing to stick puller. Pt arrived to work hours later and was forced to return home after continuing panic attacks. Pt had reported consulting with her prescriber and coming up with a plan to double up on PRN klonopin 0.5mg for on 03/11 and 03/12. Pt reported in [facility] assessment that she had SI w/o a plan due to increased hopelessness and debilitating nature of her panic attacks. Pt denied SI to this blurb writer and states she can seek out help from staff if needed. Pt reports a history of self harm with cutting in February and on 03/13 with keys on left lower leg. Pt has history of head banging, last occurrence was in January of this year.. Pt denies current urges to self harm. Pt reports good sleep and diet. Pt disclosed recent stressors of increased workload in her workplace and a recent purchase of home with her significant other. Pt was initially tearful but settled. Pt was cooperative with her admission and shows insight of her issues. Pt denies Etoh use, saying was in a program for Etoh in 2019 and has not had alcohol since. Pt reports weekly use of marijuana. Medical issues include Crohn's disease and psoriasis. Pt had half of her thyroid removed in 2018. [id number] done, admission orders obtained and treatment plan done. Pt is resting in room on 15 minute safety checks at this time.
[2022-03-15 06:00] VITALS: BP 98/57; PULSE 93; RESP 16; TEMP 37; O2SAT 97
[2022-03-15 07:26] LABS: MANUAL DIFF FLAG NO
[2022-03-15 07:34] LABS: Basophils Percent Auto 0.4 % (0-2); Eosinophils Absolute Auto 0.3 X10*3/uL (0.0-0.4); Eosinophils Percent Auto 5.4 % (0-4); Hematocrit 42.4 % (37.0-47.0); Hemoglobin 14.2 g/dl (12.0-16.0); Imm Gran Abs Auto 0.01 X10*3/uL (0.00-0.03); Imm Gran Pct Auto 0.2 % (0.0-0.4); Lymphocytes Absolute Auto 2.5 X10*3/uL (1.2-4.9); Lymphocytes Percent Auto 50.5 % (20-40); Mean Corpuscular HGB Conc 33.5 g/dl (31.0-35.0); Mean Corpuscular Hemoglobin 29.9 pg (27.0-33.0); Mean Corpuscular Volume 89.3 fL (80.0-98.0); Mean Platelet Volume 11.1 fL (9.4-12.3); Monocytes Absolute Auto 0.4 X10*3/uL (0.1-1.2); Monocytes Percent Auto 7.4 % (2-11); Neutrophils Absolute Auto 1.8 x10*3/uL (2.0-8.3); Neutrophils Percent Auto 36.1 % (45-73); Platelet Count 193 X10*3/uL (160-400); Red Blood Count 4.75 X10*6/uL (4.20-5.50)
[2022-03-15 07:43] LABS: Magnesium 2.6 mg/dL (1.6-2.6)
[2022-03-15 07:45] LABS: Alanine Aminotransferase 20 U/L (0-31); Albumin Level 3.7 g/dL (3.5-5.0); Alkaline Phosphatase 55 U/L (39-117); Anion Gap 10 (12-20); Aspartate Amino Transferase 17 U/L (5-31); Bilirubin Total 0.5 mg/dL (0.0-1.0); Blood Urea Nitrogen 13 mg/dL (9-16); Calcium 8.7 mg/dL (8.4-10.2); Carbon Dioxide 26 mmol/L (22-29); Chloride 105 mmol/L (96-108); Estimated Glomerular Filt Rate > 60; Glucose Random 106 mg/dL (60-115); Potassium 3.8 mmol/L (3.3-5.1); Sodium 137 mmol/L (135-145); Total Protein 6.8 g/dL (6.5-8.0)
[2022-03-15 08:06] LABS: Free T4 (Free Thyroxine) 0.84 ng/dL (0.71-1.85); Thyroid Stimulating Hormone 1.71 uIU/mL (0.32-4.0)
[2022-03-15 18:00] VITALS: BP 117/69; PULSE 110; RESP 16; TEMP 36.9; O2SAT 97
[2022-03-15] MEDS: clomiPRAMINE HCl 25 MG CAPSULE 150 MG PO (21:44)
[2022-03-15] MEDS: clonazePAM 0.5 MG TABLET PO ×2 (21:44→22:44)
--- NOTE | 2022-03-15 21:52 | HO.PSYCHPN ---
Subjective Subjective Date of Service: 03/15/22 Reason For Visit: Panic disorder, Unspecified OCD Interim History: Patient seen. Patient reports she is feeling well today. We are awaiting results of her Clomipramine level to decide dose increase. She reports when she was here last year, she worked with Dr. Medley and hopes she could be under his care. She denies SI. She is engaging in the milieu. No psychosis. Review of Systems Review of Systems CVS: No c/o chest pain, palpitations, no SOB HUMAN RESOURCE ASSISTANT: No c/o dizziness, headache GI: No c/o Nausea, Vomiting, diarrhea, constipation or heartburn Mental Status Exam Mental Status Exam Narrative: A&O. In hospital attire, normal body habitus. Good eye contact, attentive. No Tics or Tremors. No abnormal involuntary movements. Calm, cooperative, engaged. Non-pressured speech, spontaneous with regular rate and rhythm, normal volume and prosody. No prolonged speech latency or dysarthria. Mood is ?anxious,? affect is somewhat flat/ constricted. Denies SI. Recent incidence of SIB. Denies HI upon inquiry. Denies A/VH or delusional thought content. Thoughts are ruminative. No known cognitive or memory impairment. Insight/ Judgment fair and adequate. Diagnostics Vital Signs (24Hr): Vital Signs - 24 hr 03/15/22 06:00 03/15/22 18:00 Temperature 98.6 F 98.4 F Pulse Rate 93 110 H Respiratory Rate 16 16 Blood Pressure 98/57 L 117/69 Pulse Oximetry 97 97 Oxygen Delivery Method Room Air Labs Results: 03/15/22 07:17 03/15/22 07:17 Labs: Laboratory Results - last 48 hr 03/15/22 03/15/22 03/15/22 07:17 07:17 07:17 WBC 5.0 RBC 4.75 Hgb 14.2 Hct 42.4 MCV 89.3 MCH 29.9 MCHC 33.5 RDW 12.0 Plt Count 193 MPV 11.1 Immature Gran % (Auto) 0.2 Neut % (Auto) 36.1 L Lymph % (Auto) 50.5 H [place] % (Auto) 7.4 Eos % (Auto) 5.4 H Baso % (Auto) 0.4 Lymph # (Auto) 2.5 [place] # (Auto) 0.4 Eos # (Auto) 0.3 Baso # (Auto) 0.0 Abs Immat Gran (auto) 0.01 Absolute Neuts (auto) 1.8 L Absolute Nucleated RBC 0.000 Nucleated RBC % (auto) 0.0 Sodium 137 Potassium 3.8 Chloride 105 Carbon Dioxide 26 Anion Gap 10 L BUN 13 Creatinine 0.92 Estim Creat Clear Calc TNP Estimated GFR > 60 Random Glucose 106 Calcium 8.7 D Magnesium 2.6 Total Bilirubin 0.5 AST 17 ALT 20 Alkaline Phosphatase 55 Total Protein 6.8 Albumin 3.7 TSH 1.71 Free T4 0.84 Medications Medications Current Medications Acetaminophen (Acetaminophen 325 Mg Tablet) 650 mg PO Q6H PRN PRN Reason: Headache/Pain Mild Scale (1-3) Al Hydroxide/Mg Hydroxide (Magnesium Hydrox/Alum Hydrox 30 Ml Oral.Susp) 30 ml PO Q6H PRN PRN Reason: Heartburn/Nausea Clomipramine HCl (Clomipramine Hcl 25 Mg Capsule) 150 mg PO BEDTIME CONTRERAS Last Admin: 03/15/22 21:44 Dose: 150 mg Clonazepam (Clonazepam 0.5 Mg Tablet) 0.5 mg PO BID PRN PRN Reason: anxiety Last Admin: 03/15/22 21:44 Dose: 0.5 mg Hydroxyzine HCl (Hydroxyzine Hcl 25 Mg Tablet) 25 mg PO Q6H PRN PRN Reason: Anxiety Magnesium Hydroxide (Milk Of Magnesia 30 Ml Oral.Susp) 30 ml PO DAILY PRN PRN Reason: Constipation Trazodone HCl (Trazodone Hcl 50 Mg Tablet) 50 mg PO BEDTIME PRN PRN Reason: Insomnia Allergies Allergies Allergy/AdvReac Type Severity Reaction Status Date / Time No Known Allergies Allergy Verified 04/02/21 15:23 Assessment & Plan Assessment & Plan (1) MDD (major depressive disorder), recurrent episode: Status: Chronic Code(s): F33.9 - Major depressive disorder, recurrent, unspecified (2) KAYLA (generalized anxiety disorder): Status: Chronic Code(s): F41.1 - Generalized anxiety disorder (3) OCD (obsessive compulsive disorder): Qualifiers: Qualified Code(s): F42.9 - Obsessive-compulsive disorder, unspecified Status: Chronic Code(s): F42.9 - Obsessive-compulsive disorder, unspecified Plan Pt is a 26 y.o. Female who carries a dx of OCD, KAYLA. She presented to [facility] on 03/13/22 due to worsening panic attacks and SI without plan. Last admission at [facility] 03/2021 due to similar presentation of intrusive OCD thoughts, frequent panic attacks, and self harm/ urges to self harm. Pt benefited from increase in clomipramine to 150 mg and had been stable until January in which she had an increase in her caseload at work. She has OP services at [facility] and good support system. Plan: Will obtain clomipramine level. May benefit from augmenting agent for OCD sx. No other med changes made this evening of admission. Q15 min safety checks, CV Monitor response to medications. Monitor for safety in the milieu. Discharge on stabilization. Patient seen. Chart reviewed. Discussed with team. Obtain collateral contact info?as needed 03/15 Clomipramine level pending. Will decide dose increase after level resulted. I spent minutes with the patient and/or on the patient floor today, greater than?50% of which was spent counseling/coordinating care. Reason for contiued inpatient stay Substantial Risk for: harm to self
[2022-03-16 06:00] VITALS: BP 111/66; PULSE 102; RESP 16; TEMP 36.7; O2SAT 96
--- NOTE | 2022-03-16 12:18 | P.CONHOSP_ITS ---
History of Present Illness Data of Consult Service Date: 03/16/22 Primary Care Provider: Lakesha Henderson MD HPI 26 year old female with crohn's disease, KAYLA, depression, OCD, anxiety/panic attacks admitted for increasing anxiety attack from her work. Has no acute medical complaints at this this time Review of Systems Review of Systems: Gen: no fever Resp: no sob, no cough CV: no chest, no MARTINEZ, no leg edema GI: No n/v, no abd pain Neuro: No confusion Psych: anxiety Yes all other systems are reviewed and are negative [facility] Medical History Crohn's disease Depression KAYLA (generalized anxiety disorder) MDD (major depressive disorder), recurrent episode OCD (obsessive compulsive disorder) Suicidal ideation Pertinent family history: diabetes on fahter side, cousin with crohn's Social History Household Members: Significant Other and Other Household Members Other:: roommate Housing: House Do you presently have visiting nurse or other home services: No Patient Tobacco Use Status: Never used Tobacco e-Cigarette/Vaping Use: Never Used Second Hand Smoke Exposure: Yes (when visiting SO family) Use of substances other than those prescribed or required for medical reasons: Yes Substance Use Type: Marijuana Substance Use Frequency: Occasionally Last Used Substance: Days (ago) Currently Displaying Signs/Symptoms of Drug Intoxication Withdrawal: No Any prior treatment program specific to substance use: Yes (2019, Alcohol) Have you been hit, kicked, punched, or otherwise hurt by someone within the past year? If so, by whom?: No Do you feel safe in your current relationship?: Yes Is there a partner from a previous relationship who is making you feel unsafe now?: No Are you made to feel afraid or neglected: No Spiritual Healthcare Practices: None Denominational Healthcare Practices: None Cultural Healthcare Practices: None Advance Directives: No Advance Directives Information Provided: No Advance Directives on File: No Do you have thoughts of harming others: None Do you have a plan to hurt others: No Plan Recently lost weight without trying: No Eating poorly because of decreased appetite: No Nutrition Risks: No Nutritional Risk Patient : No : No Poor oral hygiene: No service: No Sexual orientation: Straight/Heterosexual Meds Allergies Allergy/AdvReac Type Severity Reaction Status Date / Time No Known Allergies Allergy Verified 04/02/21 15:23 Active Medications: Current Medications Acetaminophen (Acetaminophen 325 Mg Tablet) 650 mg PO Q6H PRN PRN Reason: Headache/Pain Mild Scale (1-3) Al Hydroxide/Mg Hydroxide (Magnesium Hydrox/Alum Hydrox 30 Ml Oral.Susp) 30 ml PO Q6H PRN PRN Reason: Heartburn/Nausea Clomipramine HCl (Clomipramine Hcl 25 Mg Capsule) 150 mg PO BEDTIME [facility] Last Admin: 03/15/22 21:44 Dose: 150 mg Clonazepam (Clonazepam 0.5 Mg Tablet) 0.5 mg PO BID PRN PRN Reason: anxiety Last Admin: 03/15/22 22:44 Dose: 0.5 mg Hydroxyzine HCl (Hydroxyzine Hcl 25 Mg Tablet) 25 mg PO Q6H PRN PRN Reason: Anxiety Magnesium Hydroxide (Milk Of Magnesia 30 Ml Oral.Susp) 30 ml PO DAILY PRN PRN Reason: Constipation Pt Own Med (Junel ( Norethindrone Acetate And Ethinyl Estradiol And Ferrous F 1 tab PO DAILY CONTRERAS Trazodone HCl (Trazodone Hcl 50 Mg Tablet) 50 mg PO BEDTIME PRN PRN Reason: Insomnia Physical Exam Vital Signs and Narrative: Vital Signs: Last Vital Signs Temp 98.1 F 03/16/22 06:00 Pulse 102 H 03/16/22 06:00 Resp 16 03/16/22 06:00 BP 111/66 03/16/22 06:00 Pulse Ox 96 03/16/22 06:00 O2 Del Method 03/15/22 18:00 Const: Other: General: AO X 3, no acute distress Resp: CTA bilateral CVS: S1,S2,RRR GI: +BS, NT, no distention Skin: No rash Neuro: motor grossly intact, CN 2 to 12 intact Psych: appropriate affect Results Labs CBC and Chem 7: 03/15/22 07:17 03/15/22 07:17 Assessment and Plan (1) MDD (major depressive disorder), recurrent episode: Status: Chronic (2) KAYLA (generalized anxiety disorder): Status: Chronic (3) OCD (obsessive compulsive disorder): Qualifiers: Qualified Code(s): F42.9 - Obsessive-compulsive disorder, unspecified Status: Chronic Plan admitted to inpatient Psych for anxiety/panic attack, h/o crohn's that is not active at this time. Plan: continue current care. If idicated, she doesn't need further testing for ECT
--- NOTE | 2022-03-16 13:03 | HO.PSYCHPN ---
Subjective Subjective Date of Service: 03/16/22 Reason For Visit: Panic disorder, Unspecified OCD Interim History: Patient seen. Patient reports she has not had panic attacks since coming into the hospital and that they occur only when she is at work. 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 Her case load has increased. She feels increasingly stressed. She is interested in trying low dose Klonopin. She understands risks and benefits. Otherwise feels well, Her Clomipramine level isn't back yet. She reports when she was here last year, she worked with Dr. Medley and hopes she could be under his care. She denies SI. She is engaging in the milieu. No psychosis. Also brought in [facility] control nonformulary Review of Systems Review of Systems Gen: no fever Resp: no sob, no cough CV: no chest, no MARTINEZ, no leg edema GI: No n/v, no abd pain Neuro: No confusion Psych: anxiety Yes all other systems are reviewed and are negative Mental Status Exam Mental Status Exam Narrative: A&O. In hospital attire, normal body habitus. Good eye contact, attentive. No Tics or Tremors. No abnormal involuntary movements. Calm, cooperative, engaged. Non-pressured speech, spontaneous with regular rate and rhythm, normal volume and prosody. No prolonged speech latency or dysarthria. Mood is ?anxious,? affect is somewhat flat/ constricted. Denies SI. Recent incidence of SIB. Denies HI upon inquiry. Denies A/VH or delusional thought content. Thoughts are ruminative. No known cognitive or memory impairment. Insight/ Judgment fair and adequate. Diagnostics Vital Signs (24Hr): Vital Signs - 24 hr 03/15/22 18:00 03/16/22 06:00 Temperature 98.4 F 98.1 F Pulse Rate 110 H 102 H Respiratory Rate 16 16 Blood Pressure 117/69 111/66 Pulse Oximetry 97 96 Oxygen Delivery Method Room Air Labs Results: 03/15/22 07:17 03/15/22 07:17 Labs: Laboratory Results - last 48 hr 03/15/22 03/15/22 03/15/22 07:17 07:17 07:17 WBC 5.0 RBC 4.75 Hgb 14.2 Hct 42.4 MCV 89.3 MCH 29.9 MCHC 33.5 RDW 12.0 Plt Count 193 MPV 11.1 Immature Gran % (Auto) 0.2 Neut % (Auto) 36.1 L Lymph % (Auto) 50.5 H [place] % (Auto) 7.4 Eos % (Auto) 5.4 H Baso % (Auto) 0.4 Lymph # (Auto) 2.5 [place] # (Auto) 0.4 Eos # (Auto) 0.3 Baso # (Auto) 0.0 Abs Immat Gran (auto) 0.01 Absolute Neuts (auto) 1.8 L Absolute Nucleated RBC 0.000 Nucleated RBC % (auto) 0.0 Sodium 137 Potassium 3.8 Chloride 105 Carbon Dioxide 26 Anion Gap 10 L BUN 13 Creatinine 0.92 Estim Creat Clear Calc TNP Estimated GFR > 60 Random Glucose 106 Calcium 8.7 D Magnesium 2.6 Total Bilirubin 0.5 AST 17 ALT 20 Alkaline Phosphatase 55 Total Protein 6.8 Albumin 3.7 TSH 1.71 Free T4 0.84 Medications Medications Current Medications Acetaminophen (Acetaminophen 325 Mg Tablet) 650 mg PO Q6H PRN PRN Reason: Headache/Pain Mild Scale (1-3) Al Hydroxide/Mg Hydroxide (Magnesium Hydrox/Alum Hydrox 30 Ml Oral.Susp) 30 ml PO Q6H PRN PRN Reason: Heartburn/Nausea Clomipramine HCl (Clomipramine Hcl 25 Mg Capsule) [address] [facility] Last Admin: 03/15/22 21:44 Dose: 150 mg Clonazepam (Clonazepam 0.5 Mg Tablet) 0.5 mg PO BID [facility]ERAS Hydroxyzine HCl (Hydroxyzine Hcl 25 Mg Tablet) 25 mg PO Q6H PRN PRN Reason: Anxiety Magnesium Hydroxide (Milk Of Magnesia 30 Ml Oral.Susp) 30 ml PO DAILY PRN PRN Reason: Constipation Pt Own Med (Junel ( Norethindrone Acetate And Ethinyl Estradiol And Ferrous F 1 tab PO DAILY [facility]ERAS Trazodone HCl (Trazodone Hcl 50 Mg Tablet) 50 mg PO BEDTIME PRN PRN Reason: Insomnia Allergies Allergies Allergy/AdvReac Type Severity Reaction Status Date / Time No Known Allergies Allergy Verified 04/02/21 15:23 Assessment & Plan Assessment & Plan (1) MDD (major depressive disorder), recurrent episode: Status: Chronic Code(s): F33.9 - Major depressive disorder, recurrent, unspecified (2) KAYLA (generalized anxiety disorder): Status: Chronic Code(s): F41.1 - Generalized anxiety disorder (3) OCD (obsessive compulsive disorder): Qualifiers: Qualified Code(s): F42.9 - Obsessive-compulsive disorder, unspecified Status: Chronic Code(s): F42.9 - Obsessive-compulsive disorder, unspecified Plan Will obtain clomipramine level. May benefit from augmenting agent for OCD sx. No other med changes made this evening of admission. Q15 min safety checks, CV Monitor response to medications. Monitor for safety in the milieu. Discharge on stabilization. Patient seen. Chart reviewed. Discussed with team. Obtain collateral contact info?as needed 03/15 Clomipramine level pending. Will decide dose increase after level resulted. 03/16 start Klonopin 0.5 mg BID. Restart . Await Clomipramine levels. I spent minutes with the patient and/or on the patient floor today, greater than?50% of which was spent counseling/coordinating care. Reason for contiued inpatient stay Substantial Risk for: inability to function and rapid decompensation
[2022-03-16 18:26] VITALS: BP 112/82; PULSE 105; RESP 16; TEMP 35.8; O2SAT 96
[2022-03-16] MEDS: clonazePAM 0.5 MG TABLET PO (20:25)
[2022-03-16] MEDS: clomiPRAMINE HCl 25 MG CAPSULE 150 MG PO (20:25)
[2022-03-16] MEDS: traZODone HCL 50 MG TABLET PO (20:36)
[2022-03-16] MEDS: hydrOXYzine HCL 25 MG TABLET PO (20:36)
[2022-03-17 06:00] VITALS: BP 118/74; PULSE 99; RESP 16; TEMP 36.8; O2SAT 97
[2022-03-17] MEDS: clonazePAM 0.5 MG TABLET PO ×2 (08:15→21:17)
[2022-03-17 08:57] LABS: Folate 14.1 ng/mL (> or = 4.0); Vitamin B12 244 pg/mL (200-900)
--- NOTE | 2022-03-17 17:00 | P.PNPSI_ITS ---
Subjective Subjective Date of Service: 03/17/22 Reason For Visit: Panic disorder, Unspecified OCD Interim History: Patient reports that she is feeling better. She feels that her current me dication regimen has been very helpful for eliminating a significant portion of OCD symptoms however over the past month she has had increasing episodes of panic and wants to go higher on clomipramine. Patient denies any SI or urges to self-harm. She says that several factors have gone into increasing her stress which include increased work load, recently closing on a house, school ending which is stressful and her partner's busy schedule. Hand Alterations Tailor and patient reviewed her plan to self assess when she is getting to stressed at work and figured out how she can take breaks to reduce anxiety. She reports that work is very supportive overall and she feels confident they will continue to be so. Discussed clonazepam which she outpatient provider was considering scheduling, however patient agrees that there is more to do with coping skills and therapy and that daily clonazepam is unnecessary and that it is best for to remain to stave off panic which only happens once every 1 or 2 weeks. Patient says she is feeling ready to go soon and would like to discharge by Thursday. Hand Alterations Tailor agrees since patient is having her /boyfriend come in tomorrow for a family meeting. Waiting for labs on clomipramine level prior to increasing dose however review of literature does not strongly support the need for clomipramine levels. No panic since admission. Mental Status Exam Mental Status Exam Narrative: A&O. In hospital attire, normal body habitus. Good eye contact, attentive. No Tics or Tremors. No abnormal involuntary movements. Calm, cooperative, engaged. Non-pressured speech, spontaneous with regular rate and rhythm, normal volume and prosody. No prolonged speech latency or dysarthria. Mood is ?better,? affect is somewhat calm, congruent; Denies SI or urge to self harm; Denies HI; Denies A/VH or delusional thought content. Thought content is on treatment; thought process is linear, goal directed. No known cognitive or memory impairment. Insight/ Judgment fair and adequate. Diagnostics Vital Signs (24Hr): Vital Signs - 24 hr 03/16/22 18:26 03/17/22 06:00 Temperature 96.5 F L 98.3 F Pulse Rate 105 H 99 Respiratory Rate 16 16 Blood Pressure 112/82 118/74 Pulse Oximetry 96 97 Oxygen Delivery Method Room Air Labs Results: 03/15/22 07:17 03/15/22 07:17 Labs: Laboratory Results - last 48 hr 03/15/22 07:17 Vitamin B12 244 Folate 14.1 Medications Medications Current Medications Acetaminophen (Acetaminophen 325 Mg Tablet) 650 mg PO Q6H PRN PRN Reason: Headache/Pain Mild Scale (1-3) Al Hydroxide/Mg Hydroxide (Magnesium Hydrox/Alum Hydrox 30 Ml Oral.Susp) 30 ml PO Q6H PRN PRN Reason: Heartburn/Nausea Clomipramine HCl (Clomipramine Hcl 25 Mg Capsule) 150 mg PO BEDTIME [facility] Last Admin: 03/16/22 20:25 Dose: 150 mg Clonazepam (Clonazepam 0.5 Mg Tablet) 0.5 mg PO BID CONTRERAS Last Admin: 03/17/22 08:15 Dose: 0.5 mg Hydroxyzine HCl (Hydroxyzine Hcl 25 Mg Tablet) 25 mg PO Q6H PRN PRN Reason: Anxiety Last Admin: 03/16/22 20:36 Dose: 25 mg Magnesium Hydroxide (Milk Of Magnesia 30 Ml Oral.Susp) 30 ml PO DAILY PRN PRN Reason: Constipation Pt Own Med (Junel ( Norethindrone Acetate And Ethinyl Estradiol And Ferrous F 1 tab PO DAILY CONTRERAS Last Admin: 03/17/22 08:15 Dose: 1 tab Trazodone HCl (Trazodone Hcl 50 Mg Tablet) 50 mg PO BEDTIME PRN PRN Reason: Insomnia Last Admin: 03/16/22 20:36 Dose: 50 mg Allergies Allergies Allergy/AdvReac Type Severity Reaction Status Date / Time No Known Allergies Allergy Verified 04/02/21 15:23 Assessment & Plan Assessment & Plan (1) MDD (major depressive disorder), recurrent episode: Status: Chronic Code(s): F33.9 - Major depressive disorder, recurrent, unspecified (2) KAYLA (generalized anxiety disorder): Status: Chronic Code(s): F41.1 - Generalized anxiety disorder (3) OCD (obsessive compulsive disorder): Qualifiers: Qualified Code(s): F42.9 - Obsessive-compulsive disorder, unspecified Status: Chronic Code(s): F42.9 - Obsessive-compulsive disorder, unspecified Plan 26-year-old female with history of severe OCD partially treated on current regimen; patient presents for worsening panic in face of increased psychosocial stressors. 03/17 patient reports overall good mood, no panic and feeling good about plan of putting into practice stress assessment and stress reduction plan; also agrees to the agrees clomipramine. She says she is feeling ready to go home soon; denies any SI or self-harming urges or behaviors. Boyfriend is coming in tomorrow for family. Patient has been calm and in good behavioral and impulse control on the unit throughout admission, without panic attacks. Patient is either at or close to baseline and is not in imminent risk for harm to self or others. Patient will remain on the unit another day or so for family meeting but senior mortgage underwriter agrees that she can discharge soon. PLAN: Continue home medication regimen Clomipramine levels drawn however there are to not seem to be strong evidence for the need to obtain levels prior to increasing dose as her doses only at 150 mg; will discuss with pharmacy Q15 min safety checks, CV Monitor response to medications. Monitor for safety in the milieu. Discharge on stabilization. Patient seen. Chart reviewed. Discussed with team. Obtain collateral contact info?as needed I spent minutes with the patient and/or on the patient floor today, greater than?50% of which was spent counseling/coordinating care. Patient educated on: diagnosis, medication risk/benefits and therapeutic strategies Informed Consent: understands Reason for contiued inpatient stay Substantial Risk for: stable for discharge
[2022-03-17] MEDS: clomiPRAMINE HCl 25 MG CAPSULE 150 MG PO (21:17)
[2022-03-17 21:21] VITALS: PULSE 104; TEMP 36.2; O2SAT 98
[2022-03-17] MEDS: traZODone HCL 50 MG TABLET PO (23:10)
[2022-03-18 06:39] VITALS: BP 92/52; PULSE 88; RESP 14; TEMP 37.1; O2SAT 97
[2022-03-18] MEDS: clonazePAM 0.5 MG TABLET PO ×2 (08:05→20:13)
--- NOTE | 2022-03-18 16:24 | P.PNPSI_ITS ---
Subjective Subjective Date of Service: 03/18/22 Reason For Visit: Panic disorder, Unspecified OCD Interim History: Patient reports she is still in good mood, no SI no self-harming thoughts. Boyfriend present who agrees that patient is ready for discharge but both her grateful for admission as patient feels it was helpful to solidify stress reduction planned to better assess when she is getting overwhelmed at work. Also grateful to increase clomipramine. Patient reports the clomipramine does cause hyperhidrosis however she says it is tolerable and worth the benefit and wants to raise dose. She also will continue to use clonazepam for onset of panic only agrees she does not need it scheduled. She would like to discharge tomorrow Mental Status Exam Mental Status Exam Narrative: A&O. In hospital attire, normal body habitus. Good eye contact, attentive. No Tics or Tremors. No abnormal involuntary movements. Calm, cooperative, engaged. Non-pressured speech, spontaneous with regular rate and rhythm, normal volume and prosody. No prolonged speech latency or dysarthria. Mood is ?good,? affect is somewhat calm, congruent; Denies SI or urge to self harm; Denies HI; Denies A/VH or delusional thought content. Thought content is on treatment; thought process is linear, goal directed. No known cognitive or memory impairment. Insight/ Judgment fair and adequate. Diagnostics Vital Signs (24Hr): Vital Signs - 24 hr 03/17/22 21:21 03/18/22 06:39 Temperature 97.1 F 98.8 F Pulse Rate 104 H 88 Respiratory Rate 14 Blood Pressure 92/52 L Pulse Oximetry 98 97 Oxygen Delivery Method Room Air Room Air Labs Results: 03/15/22 07:17 03/15/22 07:17 Labs: Laboratory Results - last 48 hr 03/15/22 07:17 Vitamin B12 244 Folate 14.1 Medications Medications Current Medications Acetaminophen (Acetaminophen 325 Mg Tablet) 650 mg PO Q6H PRN PRN Reason: Headache/Pain Mild Scale (1-3) Al Hydroxide/Mg Hydroxide (Magnesium Hydrox/Alum Hydrox 30 Ml Oral.Susp) 30 ml PO Q6H PRN PRN Reason: Heartburn/Nausea Clomipramine HCl (Clomipramine Hcl 25 Mg Capsule) 175 mg PO BEDTIME [facility] Clonazepam (Clonazepam 0.5 Mg Tablet) 0.5 mg PO BID CONTRERAS Last Admin: 03/18/22 08:05 Dose: 0.5 mg Hydroxyzine HCl (Hydroxyzine Hcl 25 Mg Tablet) 25 mg PO Q6H PRN PRN Reason: Anxiety Last Admin: 03/16/22 20:36 Dose: 25 mg Magnesium Hydroxide (Milk Of Magnesia 30 Ml Oral.Susp) 30 ml PO DAILY PRN PRN Reason: Constipation Pt Own Med (Junel ( Norethindrone Acetate And Ethinyl Estradiol And Ferrous F 1 tab PO DAILY [facility]ERAS Last Admin: 03/18/22 08:05 Dose: 1 tab Trazodone HCl (Trazodone Hcl 50 Mg Tablet) 50 mg PO BEDTIME PRN PRN Reason: Insomnia Last Admin: 03/17/22 23:10 Dose: 50 mg Allergies Allergies Allergy/AdvReac Type Severity Reaction Status Date / Time No Known Allergies Allergy Verified 04/02/21 15:23 Assessment & Plan Assessment & Plan (1) MDD (major depressive disorder), recurrent episode: Status: Chronic Code(s): F33.9 - Major depressive disorder, recurrent, unspecified (2) KAYLA (generalized anxiety disorder): Status: Chronic Code(s): F41.1 - Generalized anxiety disorder (3) OCD (obsessive compulsive disorder): Qualifiers: Qualified Code(s): F42.9 - Obsessive-compulsive disorder, unspecified Status: Chronic Code(s): F42.9 - Obsessive-compulsive disorder, unspecified Plan 26-year-old female with history of severe OCD partially treated on current regimen; patient presents for worsening panic in face of increased psychosocial stressors. 03/17 patient reports overall good mood, no panic and feeling good about plan of putting into practice stress assessment and stress reduction plan; also agrees to the agrees clomipramine.? She says she is feeling ready to go home soon; denies any SI or self-harming urges or behaviors.? Boyfriend is coming in tomorrow for family.? Patient has been calm and in good behavioral and impulse control on the unit throughout admission, without panic attacks.? Patient is either at or close to baseline and is not in imminent risk for harm to self or others.? Patient will remain on the unit another day or so for family meeting but policy writer typist agrees that she can discharge soon. 03/18 patient remains in good mood, without panic. Miguel without any SI or urges or thoughts at all to self-harm. Patient's boyfriend present to agrees the patient has done overall well since her last admission and that increased panic seems to be situational as there are increased stressors over this past month. Both patient and boyfriend agree with plan going forward. Patient agrees with increasing clomipramine prior to receiving levels and would like to discharge tomorrow. Patient is not in imminent risk for harm to self or others and her request for discharge honored. PLAN: Continue home medication regimen] Increase Clomipramine to 175mg Discussed case with pharmacist who also reviewed literature. There is not strong support for waiting for levels prior to increasing dose and levels are typically correlated with clinical response and not with adverse effects. Patient is already found this medication helpful; there is the side effect of hyperhidrosis however patient says it is tolerable and worth the benefit of the medication. Q15 min safety checks, CV Monitor response to medications. Monitor for safety in the milieu. Discharge on stabilization. Patient seen. Chart reviewed. Discussed with team. Obtain collateral contact info?as needed I spent minutes with the patient and/or on the patient floor today, greater than?50% of which was spent counseling/coordinating care. Patient educated on: diagnosis, medication risk/benefits and therapeutic strategies Informed Consent: understands Reason for contiued inpatient stay Substantial Risk for: stable for discharge
[2022-03-18 18:00] VITALS: BP 88/54; PULSE 80; RESP 16; TEMP 36.6; O2SAT 98
[2022-03-18] MEDS: traZODone HCL 50 MG TABLET PO (20:58)
[2022-03-18] MEDS: clomiPRAMINE HCl 25 MG CAPSULE 175 MG PO (20:58)
[2022-03-19 06:00] VITALS: BP 96/57; PULSE 94; TEMP 36.2; O2SAT 97
[2022-03-19] MEDS: clonazePAM 0.5 MG TABLET PO (09:05)
--- NOTE | 2022-03-19 10:39 | P.DS_ITS ---
DS: Providers Provider Date of Service: 03/19/22 Date of admission: 03/14/22 18:54 Date of discharge: 03/19/22 Primary care physician: Lakesha Henderson MD Admitting clinician: Jaqui Vasquez Consults: 03/14/22 19:55 Consult to Hospitalist Routine Consulting Provider: Hospitalist Reason For Exam: [place] [facility] [place] physician on discharge: Carlin Medley DS: Diagnosis Discharge Diagnosis (1) MDD (major depressive disorder), recurrent episode: Status: Chronic (2) KAYLA (generalized anxiety disorder): Status: Chronic (3) OCD (obsessive compulsive disorder): Status: Chronic DS: Medications Discharge Medications Home Medications: Previous Rx's Medication Instructions Recorded Fe 1 tab PO DAILY ##0 04/15/21 clonazepam 0.5 mg tablet 0.25 mg PO QID anxiety/panic 30 04/15/21 days #60 tabs clomipramine 25 mg capsule 25 mg PO BEDTIME 30 days #30 caps 03/19/22 clomipramine 75 mg capsule 150 mg PO BEDTIME 30 days #60 caps 03/19/22 trazodone 100 mg tablet 100 mg PO BEDTIME PRN insomnia 30 03/19/22 days #30 tabs Mental Status Exam Mental Status Exam Narrative: A&O. In casual cloths, appropriate dressed and adeuqtely groomed. Good eye contact, attentive. No Tics or Tremors. No abnormal involuntary movements. Calm, cooperative, engaged. Non-pressured speech, spontaneous with regular rate and rhythm, normal volume and prosody. No prolonged speech latency or dysarthria. Mood is ?good,? affect is congruent and calm; she Denies SI or urge to self h arm; Denies HI, A/VH or delusional thought content. Thought content is on discharge and implementing tx plan; thought process is linear, goal directed. No known cognitive or memory impairment. Insight/ Judgment fair and adequate. Data Data Completed and Pending Completed studies during hospitalization [Text1]: 03/15/22 03/15/22 03/15/22 07:17 07:17 07:17 WBC RBC Hgb Hct MCV MCH MCHC RDW Plt Count MPV Immature Gran % (Auto) Neut % (Auto) Lymph % (Auto) [place] % (Auto) Eos % (Auto) Baso % (Auto) Lymph # (Auto) [place] # (Auto) Eos # (Auto) Baso # (Auto) Abs Immat Gran (auto) Absolute Neuts (auto) Absolute Nucleated RBC Nucleated RBC % (auto) Sodium Potassium Chloride Carbon Dioxide Anion Gap BUN Creatinine Estim Creat Clear Calc Estimated GFR Random Glucose Calcium Magnesium 2.6 Total Bilirubin AST ALT Alkaline Phosphatase Total Protein Albumin Vitamin B12 244 Folate 14.1 TSH 1.71 Free T4 0.84 Clomipramine Pending Desmethylclomipramine Pending Clomipramine&N-Desclom Pending 03/15/22 03/15/22 07:17 07:17 WBC 5.0 RBC 4.75 Hgb 14.2 Hct 42.4 MCV 89.3 MCH 29.9 MCHC 33.5 RDW 12.0 Plt Count 193 MPV 11.1 Immature Gran % (Auto) 0.2 Neut % (Auto) 36.1 L Lymph % (Auto) 50.5 H [place] % (Auto) 7.4 Eos % (Auto) 5.4 H Baso % (Auto) 0.4 Lymph # (Auto) 2.5 [place] # (Auto) 0.4 Eos # (Auto) 0.3 Baso # (Auto) 0.0 Abs Immat Gran (auto) 0.01 Absolute Neuts (auto) 1.8 L Absolute Nucleated RBC 0.000 Nucleated RBC % (auto) 0.0 Sodium 137 Potassium 3.8 Chloride 105 Carbon Dioxide 26 Anion Gap 10 L BUN 13 Creatinine 0.92 Estim Creat Clear Calc TNP Estimated GFR > 60 Random Glucose 106 Calcium 8.7 D Magnesium Total Bilirubin 0.5 AST 17 ALT 20 Alkaline Phosphatase 55 Total Protein 6.8 Albumin 3.7 Vitamin B12 Folate TSH Free T4 Clomipramine Desmethylclomipramine Clomipramine&N-Desclom DS: Summary Hospital Course Hospital Course: 26-year-old female with history of severe OCD partially treated on current regimen; patient presents for worsening panic in face of increased psychosocial stressors. On admission, patient was feeling calm, no SI no self-harming thoughts. Patient remained in good behavioral and impulse control throughout her stay and was appropriate with peers and staff. Patient developed plan to Routinely perform stress assessment and stress reduction while at work; also agrees to the agrees clomipramine. Patient remained in good mood and soon felt ready for discharge, remaining feeling safe. Patient's life partner came for family meeting and agreed that patient had both done well over the past year and that increase symptoms were likely due to increased psychosocial stress and that patient was ready for discharge home. He also agreed that stress reduction and assessment plan would be helpful going forward. Outpatient provider had held off increasing clomipramine, preferring to order levels, however health underwriter reviewed literature and discussed case with pharmacist who also reviewed literature and did not find strong support for waiting for levels prior to increasing dose; rather literature suggests that levels are typically correlated with clinical response and not with adverse effects.? Patient has already found this medication helpful and despite side effect of hyperhidrosis which she says is tolerable she finds the side-effect worth the benefit of the medication and agrees to increase. Patient is returning home with her supportive life partner; she also finds work to be a very supportive environment and her family is nearby and also supportive. She is future oriented, hopeful, in a good mood and without any unsafe thoughts or behaviors. Patient is not in imminent risk for harm to self or others and her request for discharge honored. Time spent discussing smoking cessation with patient: 3 to 10 minutes Status at Discharge Functional status at discharge: independent ambulation Overall status at discharge: patient is back to baseline Time Spent with Patient Time attestation: Total time spent providing and/or coordinating discharge services: Time spent: Less than 30 minutes Discharge Plan Discharge Patient Disposition: Home, Self-Care Discharge Diagnosis: OCD Referrals: Lakesha Henderson MD [Primary Care Provider] - 1 Week Discharge Medications: New clomipramine 75 mg capsule 150 mg PO BEDTIME 30 Days Qty: 60 0RF Rx Instructions: take with 25mg Continued clonazepam 0.5 mg Tablet 0.25 mg PO QID 30 Days Qty: 60 0RF Junelle Fe 1 tab PO DAILY Qty: 0 0RF Changed trazodone 100 mg Tablet 100 mg PO BEDTIME PRN (Reason: insomnia) 30 Days Qty: 30 0RF Rx Instructions: take 1/2 to 1 tab as needed for insomnia clomipramine 25 mg Capsule 25 mg PO BEDTIME 30 Days Qty: 30 0RF Rx Instructions: take with 75mg capsules for total of 175mg Discontinued escitalopram oxalate 10 mg Tablet 10 mg PO DAILY 30 Days Qty: 30 0RF Discharge Orders: Discharge Order (Routine); Ordered 03/19/22 Ordered By: Carlin Medley Diet: regular diet Activity on Discharge: As tolerated Stand Alone Forms: Patient Portal Discharge page Care Plan Goals: Maintain mood and safe behaviors Take medications as prescribed Practice coping skills Continue with outpatient providers and reach out to them as needed Health Concerns: Mood stability and behaviors Plan of Treatment: Follow up with your psychiatric provider and other outpatient providers regarding above concerns Take medications as prescribed Assessment: Risk assessment at time of discharge:? Patient was interviewed prior to discharge and found to be fully oriented and without any SI or HI. Patient has insight and demonstrates good judgment in terms of wanting to pursue treatment. Patient is not in imminent risk of harm to self or others and has a safety plan that includes presenting to the closest ER or calling 911 if feeling unsafe.? Patient has been observed closely by nursing and unit staff throughout admission; patient has not engaged in any behaviors that suggest dangerousness to self or others and has demonstrated appropriate behaviors and impulse control
--- NOTE | 2022-03-19 13:56 | PC.NURSE ---
Patient was aware and ready for discharge. Paperwork reviewed with patient. Next dose medication and follow up appointment explained to patient . Patient verbalized understanding. Patient was accompanied with belongings to the front of the buildings per hospital policy.
--- NOTE | 2022-03-20 12:06 | PM.EVENT ---
Event Note Date of Service: 03/20/22 Event Note: Pt and her mother came to ED today, discharged yesteday from [facility] Footwear Production Machine Operator called patient while she was in ED and patient explained that today, on way to work took Clonazepam 0.5mg as preventative measure; she did so even though she was feeling calm and did not anticipating having an episode but just to have a calm day at work. However she and ended up getting very tired and then panicky; she lay down on floor crying in her office and co-worker found her and called 911 since she was not answering questions. Now, she is feeling tired but better; no SI, no self-harming thoughts. She does not think she needs readmission. Footwear Production Machine Operator talked w/ her mother who agrees that patient is safe to return home. Throughout her stay on unit she was w/out any SI/self harm thoughts and contract technical writer agrees with pt/mother that she does not need admission to psych unit.
[2022-03-20 12:17] LABS: Clomipramine 51 mcg/L (50-250); Clomipramine + Desmethylclom 103 mcg/L (200-600); Desmethylclomipramine 52 mcg/L (150-350)
== END 2022-03-19 14:10 | disposition home or self-care (01) | DRG 756 ==
PROVIDERS: Registered Nurse; Admitting Provider Psychiatry & Neurology Psychiatry; PCP Internal Medicine; Visit Provider Psychiatry & Neurology Psychiatry
DX: F41.1 Generalized anxiety disorder (principal); R45.851 Suicidal ideations; F42.9 Obsessive-compulsive disorder, unspecified; K50.90 Crohn's disease, unspecified, without complications; Z91.52 Personal history of nonsuicidal self-harm; Z79.899 Other long term (current) drug therapy
CPT/HCPCS: 36415; 80053; 80335; 82607; 82746; 83735; 84439; 84443; 85025; 92950

== ENCOUNTER 2022-03-20 09:27 | Emergency (ER) | payer OTHER, SELFPAY ==
[2022-03-20 09:32] VITALS: BP 111/71; PULSE 90; O2SAT 98
[2022-03-20 09:43] VITALS: BP 106/67; PULSE 86; RESP 18; TEMP 36.9; O2SAT 97; BMI 22.7
[2022-03-20 10:14] VITALS: BP 109/70; PULSE 92; RESP 17; TEMP 36.7; O2SAT 96
[2022-03-20 10:18] LABS: MANUAL DIFF FLAG NO
[2022-03-20 10:21] LABS: Basophils Percent Auto 0.4 % (0-2); Eosinophils Absolute Auto 0.3 X10*3/uL (0.0-0.4); Eosinophils Percent Auto 6.2 % (0-4); Hematocrit 42.3 % (37.0-47.0); Hemoglobin 14.1 g/dl (12.0-16.0); Imm Gran Abs Auto 0.01 X10*3/uL (0.00-0.03); Imm Gran Pct Auto 0.2 % (0.0-0.4); Lymphocytes Absolute Auto 2.3 X10*3/uL (1.2-4.9); Mean Corpuscular HGB Conc 33.3 g/dl (31.0-35.0); Mean Corpuscular Hemoglobin 29.8 pg (27.0-33.0); Mean Corpuscular Volume 89.4 fL (80.0-98.0); Mean Platelet Volume 10.8 fL (9.4-12.3); Monocytes Absolute Auto 0.5 X10*3/uL (0.1-1.2); Monocytes Percent Auto 9.5 % (2-11); Neutrophils Absolute Auto 2.4 x10*3/uL (2.0-8.3); Neutrophils Percent Auto 42.7 % (45-73); Platelet Count 189 X10*3/uL (160-400); Red Blood Count 4.73 X10*6/uL (4.20-5.50); Red Cell Distribution Width 12.2 % (11.0-16.0); White Blood Count 5.5 X10*3/uL (4.8-10.8)
[2022-03-20 10:38] LABS: Alanine Aminotransferase 13 U/L (0-31); Albumin Level 3.8 g/dL (3.5-5.0); Alkaline Phosphatase 58 U/L (39-117); Anion Gap 10 (12-20); Aspartate Amino Transferase 13 U/L (5-31); Bilirubin Total 0.2 mg/dL (0.0-1.0); Blood Urea Nitrogen 18 mg/dL (9-16); Calcium 8.7 mg/dL (8.4-10.2); Carbon Dioxide 26 mmol/L (22-29); Chloride 105 mmol/L (96-108); Creatinine Clr Calc Pharmacy 83.7; Estimated Glomerular Filt Rate > 60; Glucose Random 99 mg/dL (60-115); Potassium 4.3 mmol/L (3.3-5.1); Sodium 137 mmol/L (135-145); Total Protein 6.9 g/dL (6.5-8.0)
[2022-03-20 10:45] LABS: HCG Quantitative < 2 mIU/mL
--- NOTE | 2022-03-20 10:54 | ED_ITS ---
HPI - General Adult General Chief complaint: General Medical Stated complaint: LETHARGY,AMS,? PRESCRIBED MEDS PER EMS Time Seen by Provider: 03/20/22 10:00 Source: patient and family (Father) History of Present Illness HPI narrative: 26-year-old female who was recently discharged on 03/16 for major depressive disorder, generalized anxiety disorder as well as obsessive-compulsive disorder states that she went home and has been taking her medications as recommended but states that this morning she was going to be going to work for the 1st time became very anxious and took 1 of her Klonopin ends and then felt very tired. Patient states that she did go to work, she denies taking any additional medications, and then states that she was lying on the floor and did not have the ability to get up. As per the father and then documented notes patient was not responding well to her coworkers. Patient states that the Klonopin has not typically had this effect on her before. She is observed to be conversant, making sense and is alert and oriented and denies any feelings of suicidal ideation. Related Data Previous Rx's Medication Instructions Recorded 1 tab PO DAILY ##0 04/15/21 clonazepam 0.5 mg tablet 0.25 mg PO QID anxiety/panic 30 04/15/21 days #60 tabs clomipramine 25 mg capsule 25 mg PO BEDTIME 30 days #30 caps 03/19/22 clomipramine 75 mg capsule 150 mg PO BEDTIME 30 days #60 caps 03/19/22 trazodone 100 mg tablet 100 mg PO BEDTIME PRN insomnia 30 03/19/22 days #30 tabs Allergies Allergy/AdvReac Type Severity Reaction Status Date / Time No Known Allergies Allergy Verified 04/02/21 15:23 Review of Systems Review of Systems: Pertinent positives and negatives as stated in HPI 10 point review of systems is otherwise negative. [facility] Past Medical History Source: nursing notes reviewed Medical History Crohn's disease Depression Suicidal ideation Social History Social History Household Members: Significant Other and Other Household Members Other:: roommate Housing: House Do you presently have visiting nurse or other home services: No Patient Tobacco Use Status: Never used Tobacco e-Cigarette/Vaping Use: Never Used Second Hand Smoke Exposure: Yes (when visiting SO family) Substance Use Type: Marijuana Advance Directives: No Advance Directives Information Provided: No service: No Sexual orientation: Straight/Heterosexual Physical Exam ED Vital Signs: Vital Signs - 24 hr 03/20/22 09:43 03/20/22 10:14 03/20/22 11:51 Temperature 98.4 F 98.0 F 97.9 F Pulse Rate 86 92 81 Respiratory Rate 18 17 19 Blood Pressure 106/67 109/70 111/77 Pulse Oximetry 97 96 98 Oxygen Delivery Method Room Air Room Air Room Air BMI result Body Mass Index 22.7 VITAL SIGNS: Reviewed. GENERAL: Well developed, well nourished, in no acute distress. HEAD: Normocephalic/atraumatic EYES: PERRLA, EOMI EARS: Ext canals without abnormality OROPHARYNX: no oral lesions noted, posterior pharynx clear LUNGS: Normal breath sounds. No adventitious sounds or accessory muscle use. SpO2<97> CARDIOVASCULAR: Regular rate and rhythm without noted murmurs ABDOMEN: Soft, non-tender, non-distended with bowel sounds. MUSCULOSKELETAL: No tenderness, deformities, or effusions noted on gross inspection. EXTREMITIES: No cyanosis, clubbing or edema. SKIN: Inspection of the skin reveals no rashes NEUROLOGIC: Alert and oriented x 4. Strength and sensation to light touch were grossly intact x 4, cranial nerves 2-12 are grossly intact.. Course Course Course Narrative: 26-year-old female with history and clinical presentation suggestive of possibly becoming overwhelmed by returning to work and took her antianxiety medication with bad timing. There are no respiratory or cardiac concerns at this time and on review of all investigations she is otherwise stable for further evaluation. Patient is not suicidal nor is she AVH, but will have care team screen her and neither the patient nor her family feel like a repeat admission is necessary at this time. Review of all investigations otherwise negative for acute findings to otherwise explain patient's presentation and evaluation by the care team with the following recommendations with which I agree: No risk apparent. She is safe to DC if you are in agreement. She will be following up with her therapist to secure weekly sessions instead of her usual every other week sessions. She has a great deal of anxiety surrounding work but does not appear to have any other source of anxiety. 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 Patient is in agreement with the plan as well as her mother who is at bedside. Medical Decision Making Lab Data Result diagrams: 03/20/22 10:15 03/20/22 10:15 Labs: Lab Results 03/20/22 03/20/22 03/20/22 Range/Units 10:15 10:15 11:28 WBC 5.5 (4.8-10.8) X10*3/uL RBC 4.73 (4.20-5.50) X10*6/uL Hgb 14.1 (12.0-16.0) g/dl Hct 42.3 (37.0-47.0) % MCV 89.4 (80.0-98.0) fL MCH 29.8 (27.0-33.0) pg MCHC 33.3 (31.0-35.0) g/dl RDW 12.2 (11.0-16.0) % Plt Count 189 (160-400) X10*3/uL MPV 10.8 (9.4-12.3) fL Immature Gran % (Auto) 0.2 (0.0-0.4) % Neut % (Auto) 42.7 L (45-73) % Lymph % (Auto) 41.0 H (20-40) % [place] % (Auto) 9.5 (2-11) % Eos % (Auto) 6.2 H (0-4) % Baso % (Auto) 0.4 (0-2) % Lymph # (Auto) 2.3 (1.2-4.9) X10*3/uL [place] # (Auto) 0.5 (0.1-1.2) X10*3/uL Eos # (Auto) 0.3 (0.0-0.4) X10*3/uL Baso # (Auto) 0.0 (0.0-0.2) X10*3/uL Abs Immat Gran (auto) 0.01 (0.00-0.03) X10*3/uL Absolute Neuts (auto) 2.4 (2.0-8.3) x10*3/uL Absolute Nucleated RBC 0.000 (0.0-0.012) X10*3/uL Nucleated RBC % (auto) 0.0 (0.0-0.2) /100WBC Sodium 137 (135-145) mmol/L Potassium 4.3 (3.3-5.1) mmol/L Chloride 105 (96-108) mmol/L Carbon Dioxide 26 (22-29) mmol/L Anion Gap 10 L (12-20) BUN 18 H (9-16) mg/dL Creatinine 0.99 (0.5-1.4) mg/dL Estim Creat Clear Calc 83.7 Estimated GFR > 60 Random Glucose 99 (60-115) mg/dL Calcium 8.7 (8.4-10.2) mg/dL Total Bilirubin 0.2 (0.0-1.0) mg/dL AST 13 (5-31) U/L ALT 13 (0-31) U/L Alkaline Phosphatase 58 (39-117) U/L Total Protein 6.9 (6.5-8.0) g/dL Albumin 3.8 (3.5-5.0) g/dL Beta HCG, Quant < 2 mIU/mL Urine Color YELLOW Urine Appearance CLEAR Urine pH 6.5 (5.0-8.0) Ur Specific [place] 1.020 (1.005-1.025) Urine Protein NEG (NEG-TRACE) MG/DL Urine Glucose (UA) NEG (NEG) MG/DL Urine Ketones NEG (NEG) MG/DL Urine Blood TRACE (NEG) Urine Nitrite NEG (NEG) Ur Leukocyte Esterase 3+ H (NEG) Urine RBC 1-4 (0) /HPF Urine WBC 15-29 H (0-4) /HPF Ur Squamous Epith Cells 1+ /LPF Ur Renal Epithelial Cell 1+ /LPF Urine Bacteria 1+ /LPF Salicylates < 5.0 L (15-30) mg/dL Acetaminophen < 1 (<30) mcg/mL COVID-19 ([facility]) (Negative) COVID-19 Clin Com 03/20/22 Range/Units 11:48 WBC (4.8-10.8) X10*3/uL RBC (4.20-5.50) X10*6/uL Hgb (12.0-16.0) g/dl Hct (37.0-47.0) % MCV (80.0-98.0) fL MCH (27.0-33.0) pg MCHC (31.0-35.0) g/dl RDW (11.0-16.0) % Plt Count (160-400) X10*3/uL MPV (9.4-12.3) fL Immature Gran % (Auto) (0.0-0.4) % Neut % (Auto) (45-73) % Lymph % (Auto) (20-40) % [place] % (Auto) (2-11) % Eos % (Auto) (0-4) % Baso % (Auto) (0-2) % Lymph # (Auto) (1.2-4.9) X10*3/uL [place] # (Auto) (0.1-1.2) X10*3/uL Eos # (Auto) (0.0-0.4) X10*3/uL Baso # (Auto) (0.0-0.2) X10*3/uL Abs Immat Gran (auto) (0.00-0.03) X10*3/uL Absolute Neuts (auto) (2.0-8.3) x10*3/uL Absolute Nucleated RBC (0.0-0.012) X10*3/uL Nucleated RBC % (auto) (0.0-0.2) /100WBC Sodium (135-145) mmol/L Potassium (3.3-5.1) mmol/L Chloride (96-108) mmol/L Carbon Dioxide (22-29) mmol/L Anion Gap (12-20) BUN (9-16) mg/dL Creatinine (0.5-1.4) mg/dL Estim Creat Clear Calc Estimated GFR Random Glucose (60-115) mg/dL Calcium (8.4-10.2) mg/dL Total Bilirubin (0.0-1.0) mg/dL AST (5-31) U/L ALT (0-31) U/L Alkaline Phosphatase (39-117) U/L Total Protein (6.5-8.0) g/dL Albumin (3.5-5.0) g/dL Beta HCG, Quant mIU/mL Urine Color Urine Appearance Urine pH (5.0-8.0) Ur Specific [place] (1.005-1.025) Urine Protein (NEG-TRACE) MG/DL Urine Glucose (UA) (NEG) MG/DL Urine Ketones (NEG) MG/DL Urine Blood (NEG) Urine Nitrite (NEG) Ur Leukocyte Esterase (NEG) Urine RBC (0) /HPF Urine WBC (0-4) /HPF Ur Squamous Epith Cells /LPF Ur Renal Epithelial Cell /LPF Urine Bacteria /LPF Salicylates (15-30) mg/dL Acetaminophen (<30) mcg/mL COVID-19 ([facility]) Negative (Negative) COVID-19 Clin Com See Note Discharge Plan Discharge Clinical Impression: OCD (obsessive compulsive disorder), KAYLA (generalized anxiety disorder), MDD (major depressive disorder), recurrent episode Patient Disposition: Home, Self-Care Instructions: Depression (ED), Generalized Anxiety Disorder (ED), Obsessive Compulsive Disorder (DC) Additional Instructions: 1. Resume all home medications as prescribed, and keep all appointments as scheduled. 2. Please never hesitate to return to the emergency room should you have any worsening or changes in your condition. Return to the ER for worsening symptoms. Prescriptions: No Action clonazepam 0.5 mg Tablet 0.25 mg PO QID 30 Days Qty: 60 0RF Junelle Fe 1 tab PO DAILY Qty: 0 0RF clomipramine 75 mg capsule 150 mg PO BEDTIME 30 Days Qty: 60 0RF Rx Instructions: take with 25mg trazodone 100 mg Tablet 100 mg PO BEDTIME PRN (Reason: insomnia) 30 Days Qty: 30 0RF Rx Instructions: take 1/2 to 1 tab as needed for insomnia clomipramine 25 mg Capsule 25 mg PO BEDTIME 30 Days Qty: 30 0RF Rx Instructions: take with 75mg capsules for total of 175mg Referrals: Avi Moon MD [Primary Care Provider] -
[2022-03-20 11:39] LABS: Appearance Urine CLEAR; Color Urine YELLOW; Glucose Urine UA NEG (NEG); Leukocyte Esterase Urine 3+ (NEG); Nitrite Urine NEG (NEG); PH 6.5 (5.0-8.0); UACC Culture Trigger YES; Urine Blood TRACE (NEG); Urine Ketones NEG (NEG); Urine Protein NEG (NEG-TRACE)
[2022-03-20 11:51] VITALS: BP 111/77; PULSE 81; RESP 19; TEMP 36.6; O2SAT 98
[2022-03-20 11:51] LABS: Bacteria Urine 1+ /LPF; Renal Epithelial Cells Urine 1+ /LPF; Squamous Epithelial Cell Urine 1+ /LPF
[2022-03-20 11:55] LABS: Acetaminophen LAB < 1 mcg/mL (<30); Salicylate < 5.0 mg/dL (15-30)
[2022-03-20 12:17] LABS: COVID-19 Test Negative (Negative)
--- NOTE | 2022-03-20 14:03 | MHC.CARE ---
Pt is a 26 y/o Belarusian speaking, female who is previously known to the CARE Team through a recent in patient hospitalization on [facility].? Pt stated that she had been discharged from [facility] last week and scheduled herself to return to work today.? Pt was prescribed Klonopin for panic attacks and for when she ?feels an episode coming on.?? She stated that this morning she awoke and felt good, she took Klonopin anticipating the potential for a panic attack.? She drove to work and stated that she felt fine doing so.? Once at work, she began to feel drowsy and had difficulty remaining in an upright position, falling to the floor.? A co worker found her on the floor of her office, called the school psychologist, who in turn called the school nurse, who in turn called EMS. Pt stated that she has started a new job with the [employer] this year and found that the work load is far greater than her previous position making it overwhelming and anxiety provoking.? She has also recently (February 2022) purchased a home with her boyfriend Andrea. Pt is alert and oriented x4, appears neat and well groomed, appears her stated age and is engaged in the assessment.? Pt denies SI, HI, , AVH, and self-harm urges.? She reports a hx of SI thoughts but no attempts.? Pt has a hx of major depressive disorder, generalized anxiety disorder as well as obsessive-compulsive disorder.? She has one prior inpatient stay in 2020.? Pt is ruminative and perseverative, questioning her worth and her success (or perceived lack of).? She is tearful throughout the risk assessment.? Plan is for pt to be discharged home, to follow up with her therapist and secure weekly sessions.? Presently, pt has a session with her therapist every other week.? Pt feels she can be safe at home as does her Mother who is present.? Pt?s anxiety appears to be related to work only.? This disposition was discussed with and agreed upon by CARE Telesales Specialist Roro MILLER, ED provider Dr. Ronquillo, and pt?s nurse Travis Henson.
[2022-03-20 14:36] VITALS: BP 117/73; PULSE 110; RESP 18; TEMP 36.7; O2SAT 98
== END 2022-03-20 14:38 | disposition home or self-care (01) ==
PROVIDERS: Emergency Provider Student in an Organized Health Care Education/Training Program; PCP Internal Medicine
DX: N39.0 Urinary tract infection, site not specified (principal); B95.1 Streptococcus, group B, as the cause of diseases classified elsewhere; F41.1 Generalized anxiety disorder; F33.9 Major depressive disorder, recurrent, unspecified; F42.9 Obsessive-compulsive disorder, unspecified; Z79.899 Other long term (current) drug therapy; Z20.822 Contact with and (suspected) exposure to COVID-19
CPT/HCPCS: 36415; 80053; 80143; 80179; 81001; 84702; 85025; 87086; 87147; 87635; 99283